=== PATIENT | male | born 1970 | race Caucasian/White ===

== ENCOUNTER 2016-04-15 13:59 | Inpatient (IN) | payer MEDICAID, OTHER ==
[2016-04-15] VITALS (10 sets, daily range): BP systolic 147–188; BP diastolic 78–104
[~2016-04-15] VITALS: Ht 162.6 cm; Wt 77.9 kg
[~2016-04-15 13:59] MED LIST: FLUC200T PO; GLYB5 PO; LISI-662 PO; METF500T4 PO
[2016-04-15 14:41] LABS: GLUCOSE,POINT OF CARE 384 MG/DL (70-110)
[2016-04-15] MEDS ORDERED: INSULIN REGULAR, HUMAN 100 UNITS/ML IVP ONE (14:45)
[2016-04-15 15:24] LABS: BASOPHILS % (AUTO) 0.7 % (0.0-2.0); EOSINOPHILS % (AUTO) 5.1 % (1.0-6.0); LYMPHOCYTES # (AUTO) 1.7 K/uL (1.0-4.8); MEAN CORPUSCULAR HEMOGLOBIN 26.5 pg (26.0-34.0); MEAN CORPUSCULAR HGB CONC 34.1 G/dL (31.0-37.0); MEAN CORPUSCULAR VOLUME 78 fL (80-100); MONOCYTES # (AUTO) 0.7 K/uL (0.1-1.0); MONOCYTES % (AUTO) 6.3 % (2.0-9.0); NEUTROPHILS # (AUTO) 7.8 K/uL (1.8-7.7); NEUTROPHILS % (AUTO) 71.9 % (40.0-70.0); PLATELET COUNT (AUTO) 501 K/uL (150-450); RED CELL DISTRIBUTION WIDTH 16.7 % (11.5-14.5); WHITE BLOOD COUNT (AUTO) 10.8 K/uL (4.5-11.0)
[2016-04-15 15:49] LABS: HEMATOCRIT 20.2 % (41-53); HEMOGLOBIN 6.9 g/dL (13.5-17.5)
[2016-04-15 15:51] LABS: ALBUMIN 1.4 g/dL (3.4-5.0); BILIRUBIN,TOTAL 0.1 mg/dL (0.1-1.0); CALCIUM, TOTAL 7.9 mg/dL (8.8-10.5); CREATININE 1.63 mg/dL (0.60-1.30); POTASSIUM 3.9 mmol/L (3.5-5.1); TOTAL PROTEIN, SERUM 6.7 g/dL (6.4-8.2)
[2016-04-15 16:17] LABS: RBC MORPHOLOGY COMMENT ABNORMAL RBC MORPH
[2016-04-15] MEDS ORDERED: 0.9% SODIUM CHLORIDE 10 ML SYRINGE IVP PRN (16:45)
[2016-04-15] MEDS ORDERED: ONDANSETRON HCL 4 MG/2 ML VIAL IVP PRN (16:45)
[2016-04-15] MEDS ORDERED: ACETAMINOPHEN 325 MG TABLET PO PRN (16:45)
[2016-04-15 16:51] LABS: GLUCOSE,POINT OF CARE 242 MG/DL (70-110)
[2016-04-15] MEDS ORDERED: VANCOMYCIN HCL 1.25 GM in DEXTROSE 5%-WATER 250 ML IV ONE (17:00)
[2016-04-15] MEDS: PIPERACILLIN SODIUM/TAZOBACTAM 2.25 GM in DEXTROSE 5%-WATER 50 ML IV SCH (17:26)
[2016-04-15] MEDS ORDERED: SODIUM CHLORIDE 0.9% 250 ML IV ONE (21:19)
[2016-04-15] MEDS ORDERED: DEXTROSE 50%-WATER 25 GM/50 ML SYRINGE IVP PRN (23:00)
[2016-04-15] MEDS ORDERED: ZOLPIDEM TARTRATE 10 MG TABLET PO PRN (23:00)
[2016-04-15] MEDS ORDERED: ALBUTEROL SULFATE 2.5 MG/0.5 ML NEB SOLUTION NEB ONE (23:17)
[2016-04-15] MEDS ORDERED: 0.9% SODIUM CHLORIDE 5 ML NEB SOLUTION NEB ONE (23:17)
[2016-04-15] MEDS ORDERED: IPRATROPIUM BROMIDE 0.5 MG/2.5 ML NEB SOLUTION NEB ONE (23:17)
[2016-04-15] MEDS: INSULIN ASPART 100 UNITS/ML SQ PRN (23:20)
[2016-04-15] MEDS: ALBUTEROL SULFATE 2.5 MG/0.5 ML NEB SOLUTION NEB PRN (23:20)
[2016-04-16] VITALS (7 sets, daily range): BP systolic 163–191; BP diastolic 94–120
[2016-04-16] MEDS: PIPERACILLIN SODIUM/TAZOBACTAM 2.25 GM in DEXTROSE 5%-WATER 50 ML IV SCH (00:30)
[2016-04-16] MEDS ORDERED: HydrALAZINE HCL 20 MG/ML VIAL IVP PRN (06:00)
[2016-04-16] MEDS: INSULIN ASPART 100 UNITS/ML SQ PRN ×3 (06:06→17:31)
[2016-04-16 06:27] LABS: GLUCOSE COMMENT 1 Received Meds; GLUCOSE,POINT OF CARE 422 MG/DL (70-110)
[2016-04-16 06:30] LABS: GLUCOSE COMMENT 1 Received Meds; GLUCOSE,POINT OF CARE 233 MG/DL (70-110)
[2016-04-16] MEDS ORDERED: 0.9% SODIUM CHLORIDE 5 ML NEB SOLUTION NEB ONE ×3 (06:42→19:54)
[2016-04-16] MEDS ORDERED: CloNIDine HCL 0.1 MG TABLET PO ONE (08:15)
[2016-04-16 08:16] LABS: BASOPHILS # (AUTO) 0.07 K/uL (0.00-0.20); BASOPHILS % (AUTO) 0.6 % (0.0-2.0); EOSINOPHILS # (AUTO) 0.74 K/uL (0.00-0.70); EOSINOPHILS % (AUTO) 5.96 % (1.0-6.0); HEMOGLOBIN 10.6 g/dL (13.5-17.5); LYMPHOCYTES # (AUTO) 1.5 K/uL (1.0-4.8); LYMPHOCYTES % (AUTO) 11.6 % (22.0-44.0); MEAN CORPUSCULAR HEMOGLOBIN 27.1 pg (26.0-34.0); MEAN CORPUSCULAR HGB CONC 34.1 G/dL (31.0-37.0); MEAN CORPUSCULAR VOLUME 79 fL (80-100); MONOCYTES # (AUTO) 0.8 K/uL (0.1-1.0); MONOCYTES % (AUTO) 6.1 % (2.0-9.0); NEUTROPHILS # (AUTO) 9.4 K/uL (1.8-7.7); NEUTROPHILS % (AUTO) 75.7 % (40.0-70.0); PLATELET COUNT (AUTO) 562 K/uL (150-450); RED BLOOD CELL COUNT(AUTO) 3.91 MIL/uL (4.50-5.90); RED CELL DISTRIBUTION WIDTH 18.5 % (11.5-14.5); WHITE BLOOD COUNT (AUTO) 12.5 K/uL (4.5-11.0)
[2016-04-16 08:25] LABS: CREATININE 1.82 mg/dL (0.60-1.30)
[2016-04-16 08:31] LABS: ALBUMIN 1.4 g/dL (3.4-5.0); BILIRUBIN,TOTAL 0.1 mg/dL (0.1-1.0); TOTAL PROTEIN, SERUM 7.3 g/dL (6.4-8.2)
[2016-04-16] MEDS: HydrALAZINE HCL 20 MG/ML VIAL IVP SCH ×2 (08:38→16:52)
[2016-04-16] MEDS ORDERED: ACETAMINOPHEN 325 MG TABLET PO PRN (08:45)
[2016-04-16] MEDS ORDERED: OxyCODONE HCL/ACETAMINOPHEN 5-325 MG TABLET PO PRN (08:45)
[2016-04-16] MEDS ORDERED: ONDANSETRON HCL 4 MG/2 ML VIAL IVP PRN (08:45)
[2016-04-16] MEDS ORDERED: DEXTROSE 50%-WATER 25 GM/50 ML SYRINGE IVP PRN (08:45)
[2016-04-16] MEDS: ALBUTEROL SULFATE 2.5 MG/0.5 ML NEB SOLUTION NEB SCH ×3 (09:03→19:54)
[2016-04-16 09:22] LABS: RBC MORPHOLOGY COMMENT ABNORMAL RBC MORPH
[2016-04-16] MEDS: FUROSEMIDE 20 MG/2 ML VIAL IVP SCH ×2 (11:29→20:33)
[2016-04-16] MEDS: LORazepam 2 MG/ML VIAL IM PRN ×2 (11:30→20:33)
[2016-04-16] MEDS: LEVOFLOXACIN 500 MG/D5% WATER 100 ML IV SCH (11:30)
[2016-04-16] MEDS: PANTOPRAZOLE SODIUM 40 MG DR TABLET PO SCH (11:30)
[2016-04-16] MEDS ORDERED: HALOPERIDOL LACTATE 5 MG/ML VIAL IM PRN (21:30)
[2016-04-16] MEDS ORDERED: LORazepam 2 MG/ML VIAL IVP PRN (21:30)
[2016-04-17] MEDS: HydrALAZINE HCL 20 MG/ML VIAL IVP SCH ×3 (00:55→15:59)
[2016-04-17 00:56] VITALS: BP 155/81
[2016-04-17] MEDS ORDERED: 0.9% SODIUM CHLORIDE 5 ML NEB SOLUTION NEB ONE ×3 (02:31→12:50)
[2016-04-17] MEDS: ALBUTEROL SULFATE 2.5 MG/0.5 ML NEB SOLUTION NEB SCH ×4 (02:37→19:53)
[2016-04-17 03:53] VITALS: BP 172/79
[2016-04-17 06:19] LABS: BASOPHILS % (AUTO) 0.3 % (0.0-2.0); EOSINOPHILS % (AUTO) 3.9 % (1.0-6.0); HEMATOCRIT 28.9 % (41-53); HEMOGLOBIN 9.8 g/dL (13.5-17.5); LYMPHOCYTES # (AUTO) 1.6 K/uL (1.0-4.8); LYMPHOCYTES % (AUTO) 12.4 % (22.0-44.0); MEAN CORPUSCULAR HGB CONC 33.8 G/dL (31.0-37.0); MEAN CORPUSCULAR VOLUME 80 fL (80-100); MONOCYTES # (AUTO) 0.9 K/uL (0.1-1.0); MONOCYTES % (AUTO) 6.5 % (2.0-9.0); NEUTROPHILS # (AUTO) 10.2 K/uL (1.8-7.7); NEUTROPHILS % (AUTO) 76.9 % (40.0-70.0); PLATELET COUNT (AUTO) 574 K/uL (150-450); RED BLOOD CELL COUNT(AUTO) 3.62 MIL/uL (4.50-5.90); RED CELL DISTRIBUTION WIDTH 18.5 % (11.5-14.5); WHITE BLOOD COUNT (AUTO) 13.3 K/uL (4.5-11.0)
[2016-04-17] MEDS: INSULIN ASPART 100 UNITS/ML SQ PRN ×4 (06:23→22:17)
[2016-04-17 06:25] LABS: ALBUMIN 1.4 g/dL (3.4-5.0); BILIRUBIN,TOTAL 0.1 mg/dL (0.1-1.0); CALCIUM, TOTAL 8.1 mg/dL (8.8-10.5); CREATININE 1.89 mg/dL (0.60-1.30); POTASSIUM 3.7 mmol/L (3.5-5.1); TOTAL PROTEIN, SERUM 6.8 g/dL (6.4-8.2)
[2016-04-17 07:26] LABS: HEMOGLOBIN A1C 10.1 % (4.5-6.2)
[2016-04-17 09:30] VITALS: BP 129/74
[2016-04-17] MEDS: LEVOFLOXACIN 500 MG/D5% WATER 100 ML IV SCH (09:40)
[2016-04-17] MEDS: PANTOPRAZOLE SODIUM 40 MG DR TABLET PO SCH (09:41)
[2016-04-17] MEDS: FUROSEMIDE 20 MG/2 ML VIAL IVP SCH ×2 (09:41→21:13)
[2016-04-17 11:45] VITALS: BP 141/80
[2016-04-17 16:00] VITALS: BP 144/84
[2016-04-17 18:12] LABS: GLUCOSE,POINT OF CARE 294 MG/DL (70-110)
[2016-04-17 18:12] LABS: GLUCOSE COMMENT 1 Received Meds; GLUCOSE,POINT OF CARE 390 MG/DL (70-110)
[2016-04-17 18:25] LABS: GLUCOSE COMMENT 1 Received Meds; GLUCOSE,POINT OF CARE 256 MG/DL (70-110)
[2016-04-17 18:31] LABS: GLUCOSE COMMENT 1 Received Meds; GLUCOSE,POINT OF CARE 253 MG/DL (70-110)
[2016-04-17] MEDS ORDERED: 0.9% SODIUM CHLORIDE 15 ML NEB SOLUTION NEB ONE (19:30)
[2016-04-17 20:33] VITALS: BP 141/81
[2016-04-17] MEDS: ZOLPIDEM TARTRATE 10 MG TABLET PO PRN (21:04)
[2016-04-18 00:07] VITALS: BP 138/58
[2016-04-18] MEDS: HydrALAZINE HCL 20 MG/ML VIAL IVP SCH ×3 (00:41→17:41)
[2016-04-18] MEDS ORDERED: 0.9% SODIUM CHLORIDE 15 ML NEB SOLUTION NEB ONE (01:40)
[2016-04-18] MEDS: ALBUTEROL SULFATE 2.5 MG/0.5 ML NEB SOLUTION NEB SCH ×4 (01:59→20:06)
[2016-04-18 05:09] VITALS: BP 142/86
[2016-04-18 06:27] LABS: BASOPHILS # (AUTO) 0.04 K/uL (0.00-0.20); BASOPHILS % (AUTO) 0.4 % (0.0-2.0); EOSINOPHILS # (AUTO) 0.44 K/uL (0.00-0.70); EOSINOPHILS % (AUTO) 4.34 % (1.0-6.0); HEMATOCRIT 28.3 % (41-53); HEMOGLOBIN 9.7 g/dL (13.5-17.5); LYMPHOCYTES # (AUTO) 1.8 K/uL (1.0-4.8); LYMPHOCYTES % (AUTO) 17.4 % (22.0-44.0); MEAN CORPUSCULAR HEMOGLOBIN 27.2 pg (26.0-34.0); MEAN CORPUSCULAR HGB CONC 34.3 G/dL (31.0-37.0); MEAN CORPUSCULAR VOLUME 79 fL (80-100); MONOCYTES # (AUTO) 0.8 K/uL (0.1-1.0); MONOCYTES % (AUTO) 7.9 % (2.0-9.0); NEUTROPHILS % (AUTO) 69.9 % (40.0-70.0); PLATELET COUNT (AUTO) 569 K/uL (150-450); RED BLOOD CELL COUNT(AUTO) 3.57 MIL/uL (4.50-5.90); WHITE BLOOD COUNT (AUTO) 10.1 K/uL (4.5-11.0)
[2016-04-18] MEDS: INSULIN ASPART 100 UNITS/ML SQ PRN ×3 (06:52→17:52)
[2016-04-18 06:54] LABS: ALANINE AMINOTRANSFERASE 16 U/L (12-78); ALBUMIN 1.4 g/dL (3.4-5.0); ANION GAP 7 mmol/L (8-16); ASPARTATE AMINOTRANSFERASE 15 U/L (15-37); CALCIUM, TOTAL 8.3 mg/dL (8.8-10.5); CARBON DIOXIDE 26 mmol/L (22-29); CHLORIDE 103 mmol/L (98-107); CREATININE 1.94 mg/dL (0.60-1.30); GLOMERULAR FILTR. RATE CALC 38 mL/min (>60); POTASSIUM 4.5 mmol/L (3.5-5.1); SODIUM SERUM 136 mmol/L (136-145); TOTAL PROTEIN, SERUM 6.9 g/dL (6.4-8.2); UREA NITROGEN, BLOOD 37 mg/dL (7-18)
[2016-04-18 07:32] LABS: BILIRUBIN,TOTAL < 0.1 mg/dL (0.1-1.0)
[2016-04-18 07:47] VITALS: BP 147/86
[2016-04-18] MEDS ORDERED: 0.9% SODIUM CHLORIDE 5 ML NEB SOLUTION NEB ONE ×3 (08:10→20:06)
[2016-04-18] MEDS: FUROSEMIDE 20 MG TABLET PO SCH (10:41)
[2016-04-18] MEDS: SPIRONOLACTONE 50 MG TABLET PO SCH (10:41)
[2016-04-18] MEDS: PANTOPRAZOLE SODIUM 40 MG DR TABLET PO SCH (10:41)
[2016-04-18] MEDS: OXYGEN THERAPY IH SCH ×2 (11:09→21:47)
[2016-04-18 11:31] LABS: RBC MORPHOLOGY COMMENT ABNORMAL RBC MORPH
[2016-04-18 12:00] VITALS: BP 150/98
[2016-04-18 12:16] LABS: ABG A-A DIFF O2 55.2 mmHg (10-20.0); ABG BASE EXCESS -2.3 mmol/L (-2.0-3.0); ABG HCO3 22.4 mmol/L (22.0-26.0); ABG OXYHEMOGLOBIN 81.6 % (94.0-100.0); ABG PCO2 41 mmHg (35-45); ABG PH 7.367 (7.35-7.450); TEMPERATURE, FAHRENHEIT, BG 98.3 FAHREN (96.0-98.6)
[2016-04-18 12:17] LABS: ALLEN TEST, BLOOD GAS Positive
[2016-04-18] MEDS ORDERED: SODIUM CHLORIDE 3% 15 ML NEB SOLUTION NEB ONE (15:18)
[2016-04-18] MEDS ORDERED: PENTETATE DTPA TC99M/MCL ISOTOPE 1 EA INJ INJ ONE (16:10)
[2016-04-18] MEDS ORDERED: MAA ALBUMIN AGGREGATED TC99M/UD<10MCL ISOTOPE 1 EA INJ INJ ONE (16:35)
[2016-04-18] MEDS: HEPARIN SODIUM,PORCINE 5,000 UNITS/ML VIAL SQ SCH (17:41)
[2016-04-18 19:39] VITALS: BP 124/76
[2016-04-18] MEDS: BUDESONIDE 0.5 MG/2 ML NEB SOLUTION NEB SCH (20:06)
[2016-04-18] MEDS: ZOLPIDEM TARTRATE 10 MG TABLET PO PRN (21:54)
[2016-04-18 22:03] VITALS: BP 136/85
[2016-04-19 00:19] VITALS: BP 144/80
[2016-04-19] MEDS ORDERED: 0.9% SODIUM CHLORIDE 5 ML NEB SOLUTION NEB ONE ×3 (02:10→19:51)
[2016-04-19] MEDS: ALBUTEROL SULFATE 2.5 MG/0.5 ML NEB SOLUTION NEB SCH ×4 (02:39→20:18)
[2016-04-19 05:15] VITALS: BP 140/96
[2016-04-19 06:03] LABS: BASOPHILS % (AUTO) 1.1 % (0.0-2.0); EOSINOPHILS % (AUTO) 5.6 % (1.0-6.0); HEMATOCRIT 28.3 % (41-53); HEMOGLOBIN 9.4 g/dL (13.5-17.5); LYMPHOCYTES # (AUTO) 1.6 K/uL (1.0-4.8); LYMPHOCYTES % (AUTO) 18.6 % (22.0-44.0); MEAN CORPUSCULAR HEMOGLOBIN 26.4 pg (26.0-34.0); MEAN CORPUSCULAR HGB CONC 33.3 G/dL (31.0-37.0); MEAN CORPUSCULAR VOLUME 79 fL (80-100); MONOCYTES % (AUTO) 11.3 % (2.0-9.0); NEUTROPHILS # (AUTO) 5.4 K/uL (1.8-7.7); NEUTROPHILS % (AUTO) 63.4 % (40.0-70.0); PLATELET COUNT (AUTO) 632 K/uL (150-450); RED BLOOD CELL COUNT(AUTO) 3.57 MIL/uL (4.50-5.90); WHITE BLOOD COUNT (AUTO) 8.5 K/uL (4.5-11.0)
[2016-04-19 06:22] LABS: ALBUMIN 1.4 g/dL (3.4-5.0); BILIRUBIN,TOTAL 0.1 mg/dL (0.1-1.0); CALCIUM, TOTAL 8.4 mg/dL (8.8-10.5); CREATININE 2.02 mg/dL (0.60-1.30); POTASSIUM 5.1 mmol/L (3.5-5.1); TOTAL PROTEIN, SERUM 6.8 g/dL (6.4-8.2)
[2016-04-19] MEDS: INSULIN ASPART 100 UNITS/ML SQ PRN (06:40)
[2016-04-19 07:10] VITALS: BP 148/78
[2016-04-19] MEDS: BUDESONIDE 0.5 MG/2 ML NEB SOLUTION NEB SCH ×2 (08:22→20:18)
[2016-04-19] MEDS: OXYGEN THERAPY IH SCH ×2 (09:45→20:18)
[2016-04-19] MEDS: HEPARIN SODIUM,PORCINE 5,000 UNITS/ML VIAL SQ SCH ×3 (09:46→16:17)
[2016-04-19] MEDS: LEVOFLOXACIN 500 MG/D5% WATER 100 ML IV SCH (09:47)
[2016-04-19] MEDS: FUROSEMIDE 20 MG TABLET PO SCH (09:47)
[2016-04-19] MEDS: SPIRONOLACTONE 50 MG TABLET PO SCH (09:47)
[2016-04-19] MEDS: PANTOPRAZOLE SODIUM 40 MG DR TABLET PO SCH (09:48)
[2016-04-19 10:35] LABS: RBC MORPHOLOGY COMMENT ABNORMAL RBC MORPH
[2016-04-19 11:01] VITALS: BP 150/72
[2016-04-19] MEDS: HydrALAZINE HCL 20 MG/ML VIAL IVP SCH ×3 (11:17→16:17)
[2016-04-19 14:56] LABS: GLUCOSE COMMENT 1 Received Meds; GLUCOSE,POINT OF CARE 251 MG/DL (70-110)
[2016-04-19 15:02] LABS: GLUCOSE COMMENT 1 Received Meds; GLUCOSE,POINT OF CARE 264 MG/DL (70-110)
[2016-04-19 15:02] LABS: GLUCOSE COMMENT 1 Received Meds; GLUCOSE,POINT OF CARE 178 MG/DL (70-110)
[2016-04-19 15:02] LABS: GLUCOSE,POINT OF CARE 185 MG/DL (70-110)
[2016-04-19 15:16] LABS: GLUCOSE,POINT OF CARE 253 MG/DL (70-110)
[2016-04-19 15:16] LABS: GLUCOSE COMMENT 1 Received Meds; GLUCOSE,POINT OF CARE 250 MG/DL (70-110)
[2016-04-19 15:21] LABS: GLUCOSE COMMENT 1 Received Meds; GLUCOSE,POINT OF CARE 259 MG/DL (70-110)
[2016-04-19 15:22] LABS: GLUCOSE COMMENT 1 Received Meds; GLUCOSE,POINT OF CARE 178 MG/DL (70-110)
[2016-04-19 15:22] LABS: GLUCOSE COMMENT 1 Received Meds; GLUCOSE,POINT OF CARE 226 MG/DL (70-110)
[2016-04-19 15:41] VITALS: BP 167/76
[2016-04-19 19:44] VITALS: BP 165/64
[2016-04-19] MEDS: ALBUMIN HUMAN 25%-25GM/100ML 100 ML IV SCH (20:00)
[2016-04-20] MEDS: ALBUMIN HUMAN 25%-25GM/100ML 100 ML IV SCH ×4 (02:00→22:17)
[2016-04-20] MEDS: ALBUTEROL SULFATE 2.5 MG/0.5 ML NEB SOLUTION NEB SCH ×4 (02:05→20:23)
[2016-04-20] MEDS ORDERED: 0.9% SODIUM CHLORIDE 5 ML NEB SOLUTION NEB ONE ×3 (02:05→20:24)
[2016-04-20 07:51] LABS: BASOPHILS # (AUTO) 0.13 K/uL (0.00-0.20); BASOPHILS % (AUTO) 1.8 % (0.0-2.0); EOSINOPHILS # (AUTO) 0.48 K/uL (0.00-0.70); EOSINOPHILS % (AUTO) 6.61 % (1.0-6.0); HEMATOCRIT 27.4 % (41-53); HEMOGLOBIN 9.5 g/dL (13.5-17.5); LYMPHOCYTES # (AUTO) 1.4 K/uL (1.0-4.8); LYMPHOCYTES % (AUTO) 19.5 % (22.0-44.0); MEAN CORPUSCULAR HEMOGLOBIN 27.1 pg (26.0-34.0); MEAN CORPUSCULAR HGB CONC 34.8 G/dL (31.0-37.0); MEAN CORPUSCULAR VOLUME 78 fL (80-100); MONOCYTES # (AUTO) 1.1 K/uL (0.1-1.0); MONOCYTES % (AUTO) 15.3 % (2.0-9.0); NEUTROPHILS # (AUTO) 4.1 K/uL (1.8-7.7); NEUTROPHILS % (AUTO) 56.8 % (40.0-70.0); PLATELET COUNT (AUTO) 492 K/uL (150-450); RED BLOOD CELL COUNT(AUTO) 3.52 MIL/uL (4.50-5.90); RED CELL DISTRIBUTION WIDTH 18.8 % (11.5-14.5); WHITE BLOOD COUNT (AUTO) 7.2 K/uL (4.5-11.0)
[2016-04-20] MEDS: OXYGEN THERAPY IH SCH ×2 (08:00→20:23)
[2016-04-20] MEDS: HydrALAZINE HCL 20 MG/ML VIAL IVP SCH ×3 (08:00→16:00)
[2016-04-20] MEDS: HEPARIN SODIUM,PORCINE 5,000 UNITS/ML VIAL SQ SCH ×3 (08:00→16:00)
[2016-04-20 08:07] LABS: ALBUMIN 1.5 g/dL (3.4-5.0); BILIRUBIN,TOTAL 0.2 mg/dL (0.1-1.0); CALCIUM, TOTAL 8.9 mg/dL (8.8-10.5); CHOL/HDL RATIO 4.8 (4.2-7.3); CREATININE 1.79 mg/dL (0.60-1.30); POTASSIUM 5.1 mmol/L (3.5-5.1)
[2016-04-20] MEDS: PANTOPRAZOLE SODIUM 40 MG DR TABLET PO SCH (09:27)
[2016-04-20] MEDS: FUROSEMIDE 20 MG TABLET PO SCH (09:27)
[2016-04-20] MEDS: BUDESONIDE 0.5 MG/2 ML NEB SOLUTION NEB SCH ×2 (09:27→20:23)
[2016-04-20] MEDS: AmLODIPine BESYLATE 10 MG TABLET PO SCH (12:26)
[2016-04-20 12:41] LABS: RBC MORPHOLOGY COMMENT ABNORMAL RBC MORPH
[2016-04-20 20:50] VITALS: BP 176/96
[2016-04-20] MEDS ORDERED: SODIUM CHLORIDE 0.9% 250 ML IV ONE ×2 (21:26→22:37)
[2016-04-20] MEDS: INSULIN ASPART 100 UNITS/ML SQ PRN (23:19)
[2016-04-21 00:27] VITALS: BP 157/99
[2016-04-21] MEDS: HEPARIN SODIUM,PORCINE 5,000 UNITS/ML VIAL SQ SCH ×3 (00:43→15:38)
[2016-04-21] MEDS: HydrALAZINE HCL 20 MG/ML VIAL IVP SCH ×3 (00:43→15:38)
[2016-04-21] MEDS: ALBUTEROL SULFATE 2.5 MG/0.5 ML NEB SOLUTION NEB SCH ×4 (02:15→19:59)
[2016-04-21] MEDS ORDERED: 0.9% SODIUM CHLORIDE 5 ML NEB SOLUTION NEB ONE ×5 (02:15→19:51)
[2016-04-21] MEDS: ALBUMIN HUMAN 25%-25GM/100ML 100 ML IV SCH ×4 (04:07→20:04)
[2016-04-21 04:12] LABS: GLUCOSE COMMENT 1 Received Meds; GLUCOSE,POINT OF CARE 197 MG/DL (70-110)
[2016-04-21 06:02] VITALS: BP 154/85
[2016-04-21 06:11] LABS: GLUCOSE COMMENT 1 Received Meds; GLUCOSE,POINT OF CARE 149 MG/DL (70-110)
[2016-04-21] MEDS: BUDESONIDE 0.5 MG/2 ML NEB SOLUTION NEB SCH ×2 (07:06→19:59)
[2016-04-21] MEDS: OXYGEN THERAPY IH SCH ×2 (07:06→20:04)
[2016-04-21 07:27] LABS: BASOPHILS % (AUTO) 1.2 % (0.0-2.0); EOSINOPHILS % (AUTO) 10.3 % (1.0-6.0); HEMATOCRIT 26.7 % (41-53); LYMPHOCYTES # (AUTO) 1.4 K/uL (1.0-4.8); LYMPHOCYTES % (AUTO) 25.4 % (22.0-44.0); MEAN CORPUSCULAR HEMOGLOBIN 26.6 pg (26.0-34.0); MEAN CORPUSCULAR HGB CONC 33.7 G/dL (31.0-37.0); MEAN CORPUSCULAR VOLUME 79 fL (80-100); MONOCYTES # (AUTO) 0.8 K/uL (0.1-1.0); MONOCYTES % (AUTO) 14.7 % (2.0-9.0); NEUTROPHILS # (AUTO) 2.7 K/uL (1.8-7.7); NEUTROPHILS % (AUTO) 48.4 % (40.0-70.0); PLATELET COUNT (AUTO) 416 K/uL (150-450); RED BLOOD CELL COUNT(AUTO) 3.38 MIL/uL (4.50-5.90); WHITE BLOOD COUNT (AUTO) 5.7 K/uL (4.5-11.0)
[2016-04-21 07:46] LABS: BILIRUBIN,TOTAL 0.2 mg/dL (0.1-1.0); CALCIUM, TOTAL 8.4 mg/dL (8.8-10.5); CREATININE 1.57 mg/dL (0.60-1.30); POTASSIUM 4.2 mmol/L (3.5-5.1); TOTAL PROTEIN, SERUM 6.9 g/dL (6.4-8.2)
[2016-04-21 08:13] VITALS: BP 151/82
[2016-04-21 08:30] LABS: PHOSPHORUS 4.7 mg/dL (2.5-4.9)
[2016-04-21] MEDS: LEVOFLOXACIN 500 MG/D5% WATER 100 ML IV SCH (08:36)
[2016-04-21] MEDS: AmLODIPine BESYLATE 10 MG TABLET PO SCH (08:37)
[2016-04-21] MEDS: FUROSEMIDE 20 MG TABLET PO SCH (08:37)
[2016-04-21] MEDS: PANTOPRAZOLE SODIUM 40 MG DR TABLET PO SCH (08:37)
[2016-04-21] MEDS: ALBUTEROL SULFATE 2.5 MG/0.5 ML NEB SOLUTION NEB PRN (11:23)
[2016-04-21] MEDS: INSULIN ASPART 100 UNITS/ML SQ PRN ×2 (11:45→17:36)
[2016-04-21 12:07] LABS: GLUCOSE COMMENT 1 Received Meds; GLUCOSE,POINT OF CARE 179 MG/DL (70-110)
[2016-04-21 12:08] VITALS: BP 143/86
[2016-04-21] MEDS: EPOETIN ALFA 10,000 UNITS/ML VIAL SQ SCH (12:17)
[2016-04-21] MEDS: FUROSEMIDE 40 MG/4 ML VIAL IVP SCH (12:17)
[2016-04-21] MEDS: LABETALOL HCL 100 MG TABLET PO SCH ×2 (12:17→20:03)
[2016-04-21] MEDS ORDERED: HALOPERIDOL LACTATE 5 MG/ML VIAL IM PRN (13:45)
[2016-04-21] MEDS ORDERED: HALOPERIDOL 5 MG TABLET PO PRN (13:45)
[2016-04-21] MEDS ORDERED: LORazepam 2 MG/ML VIAL IM PRN (13:45)
[2016-04-21 15:06] VITALS: BP 120/63
[2016-04-21] MEDS ORDERED: SODIUM CHLORIDE 0.9% 500 ML IV ONE ×2 (15:44→20:15)
[2016-04-21] MEDS ORDERED: INFLUENZA VIRUS VACCINE QVS 2016-17 (3YR+)/PF 60 MCG/0.5 ML SYRINGE IM ONE (15:45)
[2016-04-21 18:16] LABS: GLUCOSE COMMENT 1 Received Meds; GLUCOSE,POINT OF CARE 246 MG/DL (70-110)
[2016-04-21] MEDS: LORazepam 2 MG TABLET PO PRN (20:03)
[2016-04-21 20:41] VITALS: BP 125/74
[2016-04-21 21:06] LABS: GLUCOSE,POINT OF CARE 157 MG/DL (70-110)
[2016-04-22] VITALS (7 sets, daily range): BP systolic 100–133; BP diastolic 56–78
[2016-04-22] MEDS: HEPARIN SODIUM,PORCINE 5,000 UNITS/ML VIAL SQ SCH ×3 (00:13→16:15)
[2016-04-22] MEDS: INSULIN ASPART 100 UNITS/ML SQ PRN ×4 (00:14→17:46)
[2016-04-22] MEDS ORDERED: 0.9% SODIUM CHLORIDE 5 ML NEB SOLUTION NEB ONE ×3 (01:55→14:27)
[2016-04-22] MEDS: ALBUTEROL SULFATE 2.5 MG/0.5 ML NEB SOLUTION NEB SCH ×4 (02:02→20:26)
[2016-04-22] MEDS: ALBUMIN HUMAN 25%-25GM/100ML 100 ML IV SCH ×4 (04:20→21:05)
[2016-04-22 06:31] LABS: GLUCOSE COMMENT 1 Received Meds; GLUCOSE,POINT OF CARE 159 MG/DL (70-110)
[2016-04-22 06:56] LABS: CALCIUM, TOTAL 8.2 mg/dL (8.8-10.5); CREATININE 1.8 mg/dL (0.60-1.30); MAGNESIUM 1.9 mg/dL (1.80-2.40); PHOSPHORUS 5.6 mg/dL (2.5-4.9); POTASSIUM 4.4 mmol/L (3.5-5.1)
[2016-04-22] MEDS: BUDESONIDE 0.5 MG/2 ML NEB SOLUTION NEB SCH ×2 (07:37→20:25)
[2016-04-22] MEDS: OXYGEN THERAPY IH SCH ×2 (07:41→20:00)
[2016-04-22] MEDS: HydrALAZINE HCL 20 MG/ML VIAL IVP SCH ×3 (08:25→16:00)
[2016-04-22] MEDS: LABETALOL HCL 100 MG TABLET PO SCH ×2 (08:26→21:00)
[2016-04-22] MEDS: FUROSEMIDE 40 MG/4 ML VIAL IVP SCH (08:26)
[2016-04-22] MEDS: AmLODIPine BESYLATE 10 MG TABLET PO SCH (08:26)
[2016-04-22] MEDS: PANTOPRAZOLE SODIUM 40 MG DR TABLET PO SCH (08:26)
[2016-04-22 11:56] LABS: GLUCOSE,POINT OF CARE 198 MG/DL (70-110)
[2016-04-22 16:54] LABS: COCCIDIOIDES IMMITIS AB IGG 0.785 Abs; COCCIDIOIDES IMMITIS AB IGM <0.150 Abs
[2016-04-22 17:56] LABS: GLUCOSE COMMENT 1 Received Meds; GLUCOSE,POINT OF CARE 175 MG/DL (70-110)
[2016-04-22 18:16] LABS: GLUCOSE,POINT OF CARE 215 MG/DL (70-110)
[2016-04-22 23:41] LABS: GLUCOSE COMMENT 1 Received Meds; GLUCOSE,POINT OF CARE 170 MG/DL (70-110)
[2016-04-23] MEDS: HydrALAZINE HCL 20 MG/ML VIAL IVP SCH
[2016-04-23] MEDS: ALBUMIN HUMAN 25%-25GM/100ML 100 ML IV SCH ×4 (01:11→23:07)
[2016-04-23] MEDS: HEPARIN SODIUM,PORCINE 5,000 UNITS/ML VIAL SQ SCH ×4 (01:11→23:07)
[2016-04-23 03:10] VITALS: BP 123/65
[2016-04-23 05:51] LABS: GLUCOSE,POINT OF CARE 212 MG/DL (70-110)
[2016-04-23] MEDS: INSULIN ASPART 100 UNITS/ML SQ PRN ×3 (05:54→17:52)
[2016-04-23 07:27] VITALS: BP 112/63
[2016-04-23] MEDS ORDERED: 0.9% SODIUM CHLORIDE 5 ML NEB SOLUTION NEB ONE ×3 (08:00→20:58)
[2016-04-23] MEDS: ALBUTEROL SULFATE 2.5 MG/0.5 ML NEB SOLUTION NEB SCH ×3 (08:14→21:34)
[2016-04-23] MEDS: BUDESONIDE 0.5 MG/2 ML NEB SOLUTION NEB SCH ×2 (08:14→21:34)
[2016-04-23 08:32] LABS: APPEARANCE,URINE CLOUDY (CLEAR); GLUCOSE, URINE (UA) 250 mg/dL (NEGATIVE); KETONES,URINE NEGATIVE (NEGATIVE); LEUKOCYTE ESTERASE ,URINE NEGATIVE (NEGATIVE); OCCULT BLOOD,URINE NEGATIVE (NEGATIVE); PROTEIN,URINE SEE CONFIRM (NEGATIVE)
[2016-04-23] MEDS ORDERED: AmLODIPine BESYLATE 5 MG TABLET PO SCH (09:00)
[2016-04-23] MEDS: PANTOPRAZOLE SODIUM 40 MG DR TABLET PO SCH (09:38)
[2016-04-23] MEDS: FUROSEMIDE 40 MG/4 ML VIAL IVP SCH (09:38)
[2016-04-23] MEDS: LABETALOL HCL 100 MG TABLET PO SCH ×2 (09:38→22:08)
[2016-04-23] MEDS: EPOETIN ALFA 10,000 UNITS/ML VIAL SQ SCH (09:39)
[2016-04-23] MEDS ORDERED: CloNIDine HCL 0.1 MG TABLET PO PRN (10:45)
[2016-04-23 10:46] LABS: ADD UA MICROSCOPIC YES
[2016-04-23 10:47] LABS: SULFOSALICYLIC ACID,URINE 4+ (Negative)
[2016-04-23 10:48] LABS: RBC,URINE None Seen /HPF (0-2); WBC,URINE 0-2 /HPF (0-5)
[2016-04-23 10:49] LABS: RENAL EPITHELIAL CELLS,URINE Rare /LPF (None Seen)
[2016-04-23 10:51] LABS: FINE GRANULAR CASTS,URINE 0-2 /LPF (None Seen)
[2016-04-23 10:52] LABS: COARSE GRANULAR CASTS,URINE 0-2 /LPF (None Seen)
[2016-04-23] MEDS: LEVOFLOXACIN 500 MG/D5% WATER 100 ML IV SCH (10:56)
[2016-04-23 11:26] VITALS: BP 141/78
[2016-04-23 12:46] LABS: GLUCOSE COMMENT 1 Received Meds; GLUCOSE,POINT OF CARE 147 MG/DL (70-110)
[2016-04-23 13:26] LABS: APPEARANCE,URINE CLOUDY (CLEAR); GLUCOSE, URINE (UA) 100 mg/dL (NEGATIVE); KETONES,URINE NEGATIVE (NEGATIVE); LEUKOCYTE ESTERASE ,URINE NEGATIVE (NEGATIVE); OCCULT BLOOD,URINE NEGATIVE (NEGATIVE); PROTEIN,URINE SEE CONFIRM (NEGATIVE)
[2016-04-23 13:38] LABS: ADD UA MICROSCOPIC YES
[2016-04-23 13:39] LABS: RBC,URINE None Seen /HPF (0-2)
[2016-04-23 13:40] LABS: WBC,URINE 0-2 /HPF (0-5)
[2016-04-23 13:41] LABS: COARSE GRANULAR CASTS,URINE 0-2 /LPF (None Seen)
[2016-04-23 13:43] LABS: FINE GRANULAR CASTS,URINE 0-2 /LPF (None Seen)
[2016-04-23 15:41] VITALS: BP 120/60
[2016-04-23] MEDS: HydrALAZINE HCL 25 MG TABLET PO SCH ×2 (15:41→23:07)
[2016-04-23] MEDS: OXYGEN THERAPY IH SCH ×2 (15:45→21:35)
[2016-04-23 18:02] LABS: GLUCOSE,POINT OF CARE 117 MG/DL (70-110)
[2016-04-23 20:00] VITALS: BP 112/64
[2016-04-23 23:05] VITALS: BP 124/68
[2016-04-23] MEDS: LORazepam 2 MG TABLET PO PRN (23:07)
[2016-04-23 23:20] LABS: GLUCOSE COMMENT 1 Received Meds; GLUCOSE,POINT OF CARE 155 MG/DL (70-110)
[2016-04-24] MEDS ORDERED: 0.9% SODIUM CHLORIDE 5 ML NEB SOLUTION NEB ONE ×4 (01:58→21:28)
[2016-04-24] MEDS: ALBUTEROL SULFATE 2.5 MG/0.5 ML NEB SOLUTION NEB SCH ×4 (02:08→21:34)
[2016-04-24] MEDS ORDERED: SODIUM CHLORIDE 0.9% 250 ML IV ONE (03:04)
[2016-04-24] MEDS: ALBUMIN HUMAN 25%-25GM/100ML 100 ML IV SCH ×4 (03:05→20:14)
[2016-04-24 05:15] VITALS: BP 128/61
[2016-04-24 05:31] LABS: GLUCOSE,POINT OF CARE 119 MG/DL (70-110)
[2016-04-24 06:42] LABS: BASOPHILS % (AUTO) 0.9 % (0.0-2.0); EOSINOPHILS % (AUTO) 4.1 % (1.0-6.0); HEMOGLOBIN 7.9 g/dL (13.5-17.5); LYMPHOCYTES # (AUTO) 1.1 K/uL (1.0-4.8); LYMPHOCYTES % (AUTO) 18.7 % (22.0-44.0); MEAN CORPUSCULAR HEMOGLOBIN 26.6 pg (26.0-34.0); MEAN CORPUSCULAR HGB CONC 33.1 G/dL (31.0-37.0); MEAN CORPUSCULAR VOLUME 80 fL (80-100); MONOCYTES # (AUTO) 0.8 K/uL (0.1-1.0); MONOCYTES % (AUTO) 12.9 % (2.0-9.0); NEUTROPHILS # (AUTO) 3.9 K/uL (1.8-7.7); NEUTROPHILS % (AUTO) 63.4 % (40.0-70.0); PLATELET COUNT (AUTO) 379 K/uL (150-450); RED BLOOD CELL COUNT(AUTO) 2.99 MIL/uL (4.50-5.90); WHITE BLOOD COUNT (AUTO) 6.2 K/uL (4.5-11.0)
[2016-04-24 07:17] LABS: CALCIUM, TOTAL 8.5 mg/dL (8.8-10.5); CREATININE 2.47 mg/dL (0.60-1.30); POTASSIUM 4.9 mmol/L (3.5-5.1)
[2016-04-24 07:51] VITALS: BP 136/66
[2016-04-24 08:07] LABS: PHOSPHORUS 5.4 mg/dL (2.5-4.9)
[2016-04-24] MEDS: BUDESONIDE 0.5 MG/2 ML NEB SOLUTION NEB SCH ×2 (08:08→21:33)
[2016-04-24] MEDS: FUROSEMIDE 40 MG/4 ML VIAL IVP SCH (09:07)
[2016-04-24] MEDS: HEPARIN SODIUM,PORCINE 5,000 UNITS/ML VIAL SQ SCH ×3 (09:07→23:49)
[2016-04-24] MEDS: PANTOPRAZOLE SODIUM 40 MG DR TABLET PO SCH (09:07)
[2016-04-24] MEDS: HydrALAZINE HCL 25 MG TABLET PO SCH ×4 (09:07→23:52)
[2016-04-24] MEDS: AmLODIPine BESYLATE 10 MG TABLET PO SCH (09:07)
[2016-04-24] MEDS: LABETALOL HCL 100 MG TABLET PO SCH ×2 (09:07→20:13)
[2016-04-24] MEDS: OXYGEN THERAPY IH SCH ×2 (09:08→21:34)
[2016-04-24 09:10] LABS: RBC MORPHOLOGY COMMENT ABNORMAL RBC MORPH
[2016-04-24] MEDS: INSULIN ASPART 100 UNITS/ML SQ PRN ×2 (12:10→20:13)
[2016-04-24 15:20] VITALS: BP 132/69
[2016-04-24 19:49] VITALS: BP 118/78
[2016-04-24 22:01] LABS: GLUCOSE COMMENT 1 Received Meds; GLUCOSE,POINT OF CARE 148 MG/DL (70-110)
[2016-04-24 22:01] LABS: GLUCOSE,POINT OF CARE 137 MG/DL (70-110)
[2016-04-24 22:01] LABS: GLUCOSE,POINT OF CARE 162 MG/DL (70-110)
[2016-04-24 23:30] VITALS: BP 108/68
[2016-04-25] MEDS: ALBUMIN HUMAN 25%-25GM/100ML 100 ML IV SCH ×4 (02:23→21:02)
[2016-04-25] MEDS ORDERED: 0.9% SODIUM CHLORIDE 5 ML NEB SOLUTION NEB ONE ×3 (03:25→20:06)
[2016-04-25] MEDS: ALBUTEROL SULFATE 2.5 MG/0.5 ML NEB SOLUTION NEB SCH ×4 (03:29→20:04)
[2016-04-25 03:56] VITALS: BP 128/72
[2016-04-25 06:38] LABS: BASOPHILS % (AUTO) 1.2 % (0.0-2.0); HEMATOCRIT 23.2 % (41-53); HEMOGLOBIN 7.7 g/dL (13.5-17.5); LYMPHOCYTES # (AUTO) 1.2 K/uL (1.0-4.8); LYMPHOCYTES % (AUTO) 21.5 % (22.0-44.0); MEAN CORPUSCULAR HEMOGLOBIN 26.4 pg (26.0-34.0); MEAN CORPUSCULAR HGB CONC 33.1 G/dL (31.0-37.0); MEAN CORPUSCULAR VOLUME 80 fL (80-100); MONOCYTES # (AUTO) 0.8 K/uL (0.1-1.0); MONOCYTES % (AUTO) 14.6 % (2.0-9.0); NEUTROPHILS # (AUTO) 3.4 K/uL (1.8-7.7); NEUTROPHILS % (AUTO) 59.7 % (40.0-70.0); PLATELET COUNT (AUTO) 363 K/uL (150-450); RED BLOOD CELL COUNT(AUTO) 2.91 MIL/uL (4.50-5.90); RED CELL DISTRIBUTION WIDTH 19.4 % (11.5-14.5); WHITE BLOOD COUNT (AUTO) 5.7 K/uL (4.5-11.0)
[2016-04-25 06:47] LABS: CALCIUM, TOTAL 8.4 mg/dL (8.8-10.5); CREATININE 2.5 mg/dL (0.60-1.30); POTASSIUM 5.3 mmol/L (3.5-5.1)
[2016-04-25 06:51] LABS: GLUCOSE,POINT OF CARE 134 MG/DL (70-110)
[2016-04-25] MEDS: BUDESONIDE 0.5 MG/2 ML NEB SOLUTION NEB SCH ×2 (07:10→20:17)
[2016-04-25 07:28] VITALS: BP 134/75
[2016-04-25 09:05] LABS: RBC MORPHOLOGY COMMENT ABNORMAL RBC MORPH
[2016-04-25] MEDS: AmLODIPine BESYLATE 10 MG TABLET PO SCH (09:22)
[2016-04-25] MEDS: PANTOPRAZOLE SODIUM 40 MG DR TABLET PO SCH (09:23)
[2016-04-25] MEDS: HEPARIN SODIUM,PORCINE 5,000 UNITS/ML VIAL SQ SCH ×2 (09:23→17:08)
[2016-04-25] MEDS: FUROSEMIDE 40 MG TABLET PO SCH (09:23)
[2016-04-25] MEDS: HydrALAZINE HCL 25 MG TABLET PO SCH ×2 (09:23→17:08)
[2016-04-25] MEDS: LABETALOL HCL 100 MG TABLET PO SCH ×2 (09:23→21:01)
[2016-04-25] MEDS: LEVOFLOXACIN 500 MG/D5% WATER 100 ML IV SCH (09:34)
[2016-04-25 11:26] VITALS: BP 137/79
[2016-04-25 11:26] LABS: GLUCOSE,POINT OF CARE 174 MG/DL (70-110)
[2016-04-25] MEDS: INSULIN ASPART 100 UNITS/ML SQ PRN ×3 (13:01→21:10)
[2016-04-25] MEDS ORDERED: FUROSEMIDE 40 MG/4 ML VIAL IVP ONE (15:15)
[2016-04-25 15:42] VITALS: BP 120/67
[2016-04-25 17:51] LABS: GLUCOSE,POINT OF CARE 156 MG/DL (70-110)
[2016-04-25 19:40] VITALS: BP 114/78
[2016-04-25] MEDS: OXYGEN THERAPY IH SCH (20:04)
[2016-04-25 21:16] LABS: GLUCOSE COMMENT 1 Received Meds; GLUCOSE,POINT OF CARE 192 MG/DL (70-110)
[2016-04-25 23:36] VITALS: BP 110/79
[2016-04-26] MEDS: HEPARIN SODIUM,PORCINE 5,000 UNITS/ML VIAL SQ SCH ×4 (00:13→23:25)
[2016-04-26] MEDS: HydrALAZINE HCL 25 MG TABLET PO SCH ×4 (00:13→23:25)
[2016-04-26] MEDS ORDERED: SODIUM CHLORIDE 0.9% 500 ML IV ONE (00:17)
[2016-04-26] MEDS: ALBUTEROL SULFATE 2.5 MG/0.5 ML NEB SOLUTION NEB SCH ×3 (01:52→19:15)
[2016-04-26] MEDS ORDERED: 0.9% SODIUM CHLORIDE 5 ML NEB SOLUTION NEB ONE (01:53)
[2016-04-26] MEDS: ALBUMIN HUMAN 25%-25GM/100ML 100 ML IV SCH ×4 (02:08→21:10)
[2016-04-26 04:52] VITALS: BP 122/65
[2016-04-26 05:11] LABS: GLUCOSE COMMENT 1 Received Meds; GLUCOSE,POINT OF CARE 166 MG/DL (70-110)
[2016-04-26] MEDS: INSULIN ASPART 100 UNITS/ML SQ PRN ×4 (05:58→21:13)
[2016-04-26 06:31] LABS: HEPATITIS C AB SCREEN <0.1 s/co ratio (0.0-0.9)
[2016-04-26 07:24] LABS: BASOPHILS # (AUTO) 0.02 K/uL (0.00-0.20); BASOPHILS % (AUTO) 0.3 % (0.0-2.0); EOSINOPHILS # (AUTO) 0.27 K/uL (0.00-0.70); EOSINOPHILS % (AUTO) 3.91 % (1.0-6.0); HEMATOCRIT 23.4 % (41-53); HEMOGLOBIN 7.8 g/dL (13.5-17.5); LYMPHOCYTES # (AUTO) 1.2 K/uL (1.0-4.8); LYMPHOCYTES % (AUTO) 17.8 % (22.0-44.0); MEAN CORPUSCULAR HEMOGLOBIN 26.5 pg (26.0-34.0); MEAN CORPUSCULAR HGB CONC 33.2 G/dL (31.0-37.0); MEAN CORPUSCULAR VOLUME 80 fL (80-100); MONOCYTES % (AUTO) 14.6 % (2.0-9.0); NEUTROPHILS # (AUTO) 4.4 K/uL (1.8-7.7); NEUTROPHILS % (AUTO) 63.3 % (40.0-70.0); PLATELET COUNT (AUTO) 351 K/uL (150-450); RED BLOOD CELL COUNT(AUTO) 2.94 MIL/uL (4.50-5.90); RED CELL DISTRIBUTION WIDTH 19.6 % (11.5-14.5); WHITE BLOOD COUNT (AUTO) 6.9 K/uL (4.5-11.0)
[2016-04-26 07:54] LABS: CREATININE 2.54 mg/dL (0.60-1.30); MAGNESIUM 2.2 mg/dL (1.80-2.40); PHOSPHORUS 5.1 mg/dL (2.5-4.9); POTASSIUM 5.1 mmol/L (3.5-5.1)
[2016-04-26 07:58] VITALS: BP 129/72
[2016-04-26] MEDS: OXYGEN THERAPY IH SCH ×2 (08:00→20:00)
[2016-04-26 08:16] LABS: CALCIUM, TOTAL 8.5 mg/dL (8.8-10.5)
[2016-04-26] MEDS: AmLODIPine BESYLATE 10 MG TABLET PO SCH (08:53)
[2016-04-26] MEDS: LABETALOL HCL 100 MG TABLET PO SCH ×2 (08:53→21:09)
[2016-04-26] MEDS: FUROSEMIDE 40 MG TABLET PO SCH (08:54)
[2016-04-26] MEDS: PANTOPRAZOLE SODIUM 40 MG DR TABLET PO SCH (08:54)
[2016-04-26] MEDS: EPOETIN ALFA 10,000 UNITS/ML VIAL SQ SCH (08:54)
[2016-04-26] MEDS: BUDESONIDE 0.5 MG/2 ML NEB SOLUTION NEB SCH ×2 (09:26→19:15)
[2016-04-26 10:55] LABS: RBC MORPHOLOGY COMMENT ABNORMAL RBC MORPH
[2016-04-26] MEDS ORDERED: FUROSEMIDE 40 MG/4 ML VIAL IVP ONE (11:30)
[2016-04-26 11:47] LABS: GLUCOSE,POINT OF CARE 223 MG/DL (70-110)
[2016-04-26 11:49] VITALS: BP 118/69
[2016-04-26 16:30] VITALS: BP 130/76
[2016-04-26 17:47] LABS: GLUCOSE,POINT OF CARE 215 MG/DL (70-110)
[2016-04-26 19:25] VITALS: BP 124/72
[2016-04-26 21:11] LABS: GLUCOSE COMMENT 1 Received Meds; GLUCOSE,POINT OF CARE 193 MG/DL (70-110)
[2016-04-26 23:40] VITALS: BP 118/78
[2016-04-27] MEDS: ALBUMIN HUMAN 25%-25GM/100ML 100 ML IV SCH ×3 (02:00→20:32)
[2016-04-27] MEDS ORDERED: 0.9% SODIUM CHLORIDE 5 ML NEB SOLUTION NEB ONE ×3 (03:50→15:30)
[2016-04-27] MEDS: ALBUTEROL SULFATE 2.5 MG/0.5 ML NEB SOLUTION NEB SCH ×4 (03:53→20:02)
[2016-04-27 04:43] VITALS: BP 122/84
[2016-04-27 05:46] LABS: GLUCOSE,POINT OF CARE 201 MG/DL (70-110)
[2016-04-27] MEDS: INSULIN ASPART 100 UNITS/ML SQ PRN ×3 (06:16→20:33)
[2016-04-27 06:36] LABS: CALCIUM, TOTAL 8.5 mg/dL (8.8-10.5); CREATININE 2.58 mg/dL (0.60-1.30); MAGNESIUM 2.1 mg/dL (1.80-2.40); PHOSPHORUS 5.3 mg/dL (2.5-4.9); POTASSIUM 5.3 mmol/L (3.5-5.1)
[2016-04-27] MEDS: BUDESONIDE 0.5 MG/2 ML NEB SOLUTION NEB SCH ×2 (07:37→20:02)
[2016-04-27 07:38] VITALS: BP 116/76
[2016-04-27] MEDS: HydrALAZINE HCL 25 MG TABLET PO SCH ×3 (08:00→23:43)
[2016-04-27] MEDS: HEPARIN SODIUM,PORCINE 5,000 UNITS/ML VIAL SQ SCH ×3 (08:00→23:43)
[2016-04-27] MEDS: LABETALOL HCL 100 MG TABLET PO SCH ×2 (09:00→20:32)
[2016-04-27] MEDS: PANTOPRAZOLE SODIUM 40 MG DR TABLET PO SCH (09:00)
[2016-04-27] MEDS: AmLODIPine BESYLATE 10 MG TABLET PO SCH (09:00)
[2016-04-27 10:56] LABS: IGG (IMMUNOFIXATION) 1112 mg/dL (700-1600)
[2016-04-27 10:59] LABS: INR 1.1 (0.9-1.1); PROTHROMBIN TIME 11.7 SEC (9.4-11.6)
[2016-04-27 11:02] VITALS: BP 139/74
[2016-04-27 11:25] LABS: GLUCOSE,POINT OF CARE 202 MG/DL (70-110)
[2016-04-27] MEDS: ALBUTEROL SULFATE 2.5 MG/0.5 ML NEB SOLUTION NEB PRN (11:38)
[2016-04-27] MEDS ORDERED: GELATIN SPONGE,ABSORBABLE 12-7 MM TP ONE (13:32)
[2016-04-27] MEDS ORDERED: LIDOCAINE HCL/PF 1% 30 ML VIAL ONE (13:32)
[2016-04-27] MEDS ORDERED: MIDAZOLAM HCL 2 MG/2 ML VIAL ONE (13:32)
[2016-04-27] MEDS ORDERED: FentaNYL CITRATE-PF 100 MCG/2 ML VIAL ONE (13:32)
[2016-04-27] MEDS ORDERED: MIDAZOLAM HCL 2 MG/2 ML VIAL IVP ONE (14:27)
[2016-04-27] MEDS ORDERED: FentaNYL CITRATE-PF 100 MCG/2 ML VIAL IVP ONE (14:27)
[2016-04-27 15:14] VITALS: BP 143/77
[2016-04-27] MEDS: LEVOFLOXACIN 500 MG/D5% WATER 100 ML IV SCH (17:13)
[2016-04-27] MEDS: MORPHINE SULFATE 2 MG/ML SYRINGE IVP PRN ×3 (17:14→23:53)
[2016-04-27 18:16] LABS: GLUCOSE,POINT OF CARE 242 MG/DL (70-110)
[2016-04-27] MEDS: FUROSEMIDE 40 MG/4 ML VIAL IVP SCH (18:20)
[2016-04-27 20:25] VITALS: BP 127/64
[2016-04-27 22:31] LABS: GLUCOSE COMMENT 1 Received Meds; GLUCOSE,POINT OF CARE 238 MG/DL (70-110)
[2016-04-27] MEDS: OXYGEN THERAPY IH SCH (23:44)
[2016-04-28 00:27] VITALS: BP 132/72
[2016-04-28] MEDS: ALBUMIN HUMAN 25%-25GM/100ML 100 ML IV SCH ×4 (02:34→20:32)
[2016-04-28 03:06] LABS: ALBUMIN/GLOBULIN RAITO (PEP) 1.5 (0.7-1.7); ALPHA-1 GLOBULINS(PEP) 0.1 g/dL (0.0-0.4); ALPHA-2 GLOBULINS (PEP) 0.7 g/dL (0.4-1.0); BETA (PEP) 0.7 g/dL (0.7-1.3); GAMMA GLOBULINS (PEP) 1.1 g/dL (0.4-1.8); GLOBULIN TOTAL (PEP) 2.6 g/dL (2.2-3.9); M-SPIKE (PEP) Not Observed g/dL (Not Observed); TOTAL PROTEIN 6.6 g/dL (6.0-8.5)
[2016-04-28] MEDS ORDERED: 0.9% SODIUM CHLORIDE 5 ML NEB SOLUTION NEB ONE ×4 (04:24→19:37)
[2016-04-28] MEDS: ALBUTEROL SULFATE 2.5 MG/0.5 ML NEB SOLUTION NEB SCH ×4 (04:27→19:42)
[2016-04-28 04:39] VITALS: BP 128/69
[2016-04-28] MEDS: MORPHINE SULFATE 2 MG/ML SYRINGE IVP PRN ×3 (05:18→16:02)
[2016-04-28 05:40] LABS: COMPLEMENT C3 76 mg/dL (82-167); COMPLEMENT C4 33 mg/dL (14-44)
[2016-04-28 06:02] LABS: GLUCOSE,POINT OF CARE 182 MG/DL (70-110)
[2016-04-28 07:36] VITALS: BP_SYST 133; BP_SYST 139; BP_DIAS 59; BP_DIAS 70
[2016-04-28] MEDS: BUDESONIDE 0.5 MG/2 ML NEB SOLUTION NEB SCH ×2 (07:53→19:42)
[2016-04-28] MEDS: HEPARIN SODIUM,PORCINE 5,000 UNITS/ML VIAL SQ SCH ×2 (08:00→15:53)
[2016-04-28] MEDS: EPOETIN ALFA 10,000 UNITS/ML VIAL SQ SCH (08:19)
[2016-04-28] MEDS: FUROSEMIDE 40 MG/4 ML VIAL IVP SCH (08:19)
[2016-04-28 08:23] LABS: CALCIUM, TOTAL 8.8 mg/dL (8.8-10.5); CREATININE 2.32 mg/dL (0.60-1.30); MAGNESIUM 2.3 mg/dL (1.80-2.40); PHOSPHORUS 5.7 mg/dL (2.5-4.9); TOTAL PROTEIN, SERUM 7.3 g/dL (6.4-8.2)
[2016-04-28 08:32] LABS: POTASSIUM 6.4 mmol/L (3.5-5.1)
[2016-04-28 09:37] LABS: CALCIUM, TOTAL 8.6 mg/dL (8.8-10.5); CREATININE 2.35 mg/dL (0.60-1.30); POTASSIUM 5.9 mmol/L (3.5-5.1)
[2016-04-28] MEDS ORDERED: SODIUM POLYSTYRENE SULFONATE 15 GM/60 ML SUSPENSION BOTTLE PO ONE (11:00)
[2016-04-28 12:28] VITALS: BP 143/71
[2016-04-28] MEDS: PANTOPRAZOLE SODIUM 40 MG DR TABLET PO SCH (12:28)
[2016-04-28] MEDS: HydrALAZINE HCL 25 MG TABLET PO SCH ×2 (12:28→15:53)
[2016-04-28] MEDS: LABETALOL HCL 100 MG TABLET PO SCH ×2 (12:28→20:32)
[2016-04-28] MEDS: AmLODIPine BESYLATE 10 MG TABLET PO SCH (12:28)
[2016-04-28] MEDS: INSULIN ASPART 100 UNITS/ML SQ PRN ×3 (12:30→21:17)
[2016-04-28 13:06] LABS: GLUCOSE COMMENT 1 Received Meds; GLUCOSE,POINT OF CARE 171 MG/DL (70-110)
[2016-04-28 15:56] VITALS: BP 135/66
[2016-04-28 18:30] LABS: GLUCOSE COMMENT 1 Received Meds; GLUCOSE,POINT OF CARE 199 MG/DL (70-110)
[2016-04-28 19:32] LABS: APPEARANCE,UNSPUN,BODY FLUID CLOUDY (CLEAR); COLOR,BODY FLUID YELLOW (LT YELLOW); OTHER CELLS,BODY FLUID MACROPHAGES
[2016-04-28 19:34] LABS: PH, BODY FLUID 7
[2016-04-28 20:25] VITALS: BP 140/73
[2016-04-28] MEDS ORDERED: SODIUM CHLORIDE 0.9% 500 ML IV ONE (21:47)
[2016-04-28 21:57] LABS: GLUCOSE COMMENT 1 Received Meds; GLUCOSE,POINT OF CARE 191 MG/DL (70-110)
[2016-04-29] VITALS (7 sets, daily range): BP systolic 131–154; BP diastolic 65–80
[2016-04-29] MEDS: HydrALAZINE HCL 25 MG TABLET PO SCH ×4 (01:20→23:10)
[2016-04-29] MEDS ORDERED: 0.9% SODIUM CHLORIDE 5 ML NEB SOLUTION NEB ONE ×4 (02:53→20:24)
[2016-04-29] MEDS: ALBUTEROL SULFATE 2.5 MG/0.5 ML NEB SOLUTION NEB SCH ×4 (02:56→20:48)
[2016-04-29 04:16] LABS: ALPHA-1 URINE (ELP) 0.1 %; ALPHA-2 URINE(ELP) 1.5 %; BETA URINE(ELP) 5.1 %; GAMMA URINE(ELP) 11.2 %; TOTAL PROTEIN URINE 558.9 mg/dL (Not Estab.)
[2016-04-29 04:16] LABS: ALBUMIN URINE (ELP24) 77.8 %; ALPHA-1 URINE (ELP24) 0.2 %; ALPHA-2 URINE(ELP24) 2.1 %; BETA URINE(ELP24) 6.5 %; GAMMA URINE(ELP24) 13.4 %; TOTAL PROTEIN URINE 904.6 mg/dL (Not Estab.)
[2016-04-29] MEDS: ALBUMIN HUMAN 25%-25GM/100ML 100 ML IV SCH ×4 (05:37→19:53)
[2016-04-29] MEDS: INSULIN ASPART 100 UNITS/ML SQ PRN ×4 (05:49→21:02)
[2016-04-29 06:16] LABS: GLUCOSE COMMENT 1 Received Meds; GLUCOSE,POINT OF CARE 187 MG/DL (70-110)
[2016-04-29] MEDS: BUDESONIDE 0.5 MG/2 ML NEB SOLUTION NEB SCH ×2 (08:49→20:48)
[2016-04-29] MEDS: AmLODIPine BESYLATE 10 MG TABLET PO SCH (08:53)
[2016-04-29] MEDS: PANTOPRAZOLE SODIUM 40 MG DR TABLET PO SCH (08:53)
[2016-04-29] MEDS: FUROSEMIDE 40 MG/4 ML VIAL IVP SCH (08:53)
[2016-04-29] MEDS: LABETALOL HCL 100 MG TABLET PO SCH ×2 (08:54→19:53)
[2016-04-29] MEDS: LEVOFLOXACIN 500 MG/D5% WATER 100 ML IV SCH (09:44)
[2016-04-29] MEDS: MORPHINE SULFATE 2 MG/ML SYRINGE IVP PRN ×5 (11:33→23:10)
[2016-04-29 12:06] LABS: GLUCOSE,POINT OF CARE 262 MG/DL (70-110)
[2016-04-29 15:08] LABS: TOTAL PROTEIN,BODY FLUID,REF 3.1 g/dL
[2016-04-29] MEDS ORDERED: 0.9% SODIUM CHLORIDE 10 ML SYRINGE IVP PRN (15:15)
[2016-04-29 17:36] LABS: GLUCOSE COMMENT 1 Received Meds; GLUCOSE,POINT OF CARE 204 MG/DL (70-110)
[2016-04-29 18:33] LABS: CALCIUM, TOTAL 8.6 mg/dL (8.8-10.5); CREATININE 2.16 mg/dL (0.60-1.30)
[2016-04-29 22:11] LABS: GLUCOSE COMMENT 1 Received Meds; GLUCOSE,POINT OF CARE 199 MG/DL (70-110)
[2016-04-30] MEDS: MORPHINE SULFATE 2 MG/ML SYRINGE IVP PRN ×6 (02:02→23:49)
[2016-04-30] MEDS: ALBUMIN HUMAN 25%-25GM/100ML 100 ML IV SCH ×2 (02:02→08:18)
[2016-04-30] MEDS ORDERED: 0.9% SODIUM CHLORIDE 5 ML NEB SOLUTION NEB ONE ×4 (02:46→19:51)
[2016-04-30] MEDS: ALBUTEROL SULFATE 2.5 MG/0.5 ML NEB SOLUTION NEB SCH ×4 (02:48→20:15)
[2016-04-30 04:59] VITALS: BP 127/63
[2016-04-30] MEDS: INSULIN ASPART 100 UNITS/ML SQ PRN ×4 (06:22→21:37)
[2016-04-30] MEDS: BUDESONIDE 0.5 MG/2 ML NEB SOLUTION NEB SCH ×2 (07:15→20:27)
[2016-04-30 07:46] VITALS: BP 137/58
[2016-04-30 08:16] LABS: GLUCOSE COMMENT 1 Received Meds; GLUCOSE,POINT OF CARE 176 MG/DL (70-110)
[2016-04-30] MEDS: AmLODIPine BESYLATE 10 MG TABLET PO SCH (08:18)
[2016-04-30] MEDS: PANTOPRAZOLE SODIUM 40 MG DR TABLET PO SCH (08:18)
[2016-04-30] MEDS: FUROSEMIDE 40 MG/4 ML VIAL IVP SCH (08:18)
[2016-04-30] MEDS: LABETALOL HCL 100 MG TABLET PO SCH ×2 (08:19→21:30)
[2016-04-30] MEDS: HydrALAZINE HCL 25 MG TABLET PO SCH ×3 (08:19→23:48)
[2016-04-30] MEDS: EPOETIN ALFA 10,000 UNITS/ML VIAL SQ SCH (09:16)
[2016-04-30] MEDS ORDERED: SODIUM CHLORIDE 0.9% 250 ML IV ONE (11:17)
[2016-04-30 11:25] VITALS: BP 138/76
[2016-04-30 11:50] LABS: BASOPHILS % (AUTO) 0.9 % (0.0-2.0); EOSINOPHILS % (AUTO) 6.5 % (1.0-6.0); HEMATOCRIT 26.2 % (41-53); HEMOGLOBIN 8.5 g/dL (13.5-17.5); LYMPHOCYTES # (AUTO) 0.7 K/uL (1.0-4.8); LYMPHOCYTES % (AUTO) 8.7 % (22.0-44.0); MEAN CORPUSCULAR HEMOGLOBIN 26.2 pg (26.0-34.0); MEAN CORPUSCULAR HGB CONC 32.7 G/dL (31.0-37.0); MEAN CORPUSCULAR VOLUME 80 fL (80-100); MONOCYTES % (AUTO) 12.2 % (2.0-9.0); NEUTROPHILS # (AUTO) 5.6 K/uL (1.8-7.7); NEUTROPHILS % (AUTO) 71.7 % (40.0-70.0); PLATELET COUNT (AUTO) 386 K/uL (150-450); RED BLOOD CELL COUNT(AUTO) 3.26 MIL/uL (4.50-5.90); RED CELL DISTRIBUTION WIDTH 19.5 % (11.5-14.5); WHITE BLOOD COUNT (AUTO) 7.9 K/uL (4.5-11.0)
[2016-04-30 11:51] LABS: GLUCOSE,POINT OF CARE 193 MG/DL (70-110)
[2016-04-30 12:06] LABS: ALBUMIN 4.1 g/dL (3.4-5.0); BILIRUBIN,TOTAL 0.5 mg/dL (0.1-1.0); CALCIUM, TOTAL 8.9 mg/dL (8.8-10.5); CREATININE 1.98 mg/dL (0.60-1.30); POTASSIUM 5.1 mmol/L (3.5-5.1); TOTAL PROTEIN, SERUM 7.6 g/dL (6.4-8.2)
[2016-04-30 12:39] LABS: RBC MORPHOLOGY COMMENT ABNORMAL RBC MORPH
[2016-04-30 15:39] VITALS: BP 125/84
[2016-04-30 17:36] LABS: GLUCOSE,POINT OF CARE 210 MG/DL (70-110)
[2016-04-30 19:13] VITALS: BP 132/78
[2016-04-30 23:48] VITALS: BP 143/81
[2016-05-01] MEDS ORDERED: 0.9% SODIUM CHLORIDE 5 ML NEB SOLUTION NEB ONE ×3 (02:13→19:15)
[2016-05-01] MEDS: ALBUTEROL SULFATE 2.5 MG/0.5 ML NEB SOLUTION NEB SCH ×4 (02:13→19:25)
[2016-05-01 04:17] VITALS: BP 128/78
[2016-05-01] MEDS: MORPHINE SULFATE 2 MG/ML SYRINGE IVP PRN ×3 (05:32→23:49)
[2016-05-01] MEDS: INSULIN ASPART 100 UNITS/ML SQ PRN (06:30)
[2016-05-01 07:46] VITALS: BP 132/84
[2016-05-01] MEDS: FUROSEMIDE 40 MG/4 ML VIAL IVP SCH (08:05)
[2016-05-01] MEDS: LEVOFLOXACIN 500 MG/D5% WATER 100 ML IV SCH (08:05)
[2016-05-01] MEDS: PANTOPRAZOLE SODIUM 40 MG DR TABLET PO SCH (08:06)
[2016-05-01] MEDS: HydrALAZINE HCL 25 MG TABLET PO SCH ×3 (08:09→23:49)
[2016-05-01] MEDS: LABETALOL HCL 100 MG TABLET PO SCH ×2 (08:09→20:47)
[2016-05-01] MEDS: BUDESONIDE 0.5 MG/2 ML NEB SOLUTION NEB SCH ×2 (08:25→19:25)
[2016-05-01] MEDS: AmLODIPine BESYLATE 10 MG TABLET PO SCH (10:25)
[2016-05-01 11:38] VITALS: BP 119/55
[2016-05-01 11:46] LABS: GLUCOSE,POINT OF CARE 190 MG/DL (70-110)
[2016-05-01 11:46] LABS: GLUCOSE,POINT OF CARE 229 MG/DL (70-110)
[2016-05-01 15:40] VITALS: BP 136/76
[2016-05-01] MEDS ORDERED: IPRATROPIUM BROMIDE 0.5 MG/2.5 ML NEB SOLUTION NEB ONE (19:17)
[2016-05-01 20:17] VITALS: BP 123/68
[2016-05-02] VITALS (8 sets, daily range): BP systolic 133–154; BP diastolic 61–79
[2016-05-02 02:32] LABS: GLUCOSE,POINT OF CARE 165 MG/DL (70-110)
[2016-05-02] MEDS ORDERED: 0.9% SODIUM CHLORIDE 5 ML NEB SOLUTION NEB ONE ×3 (03:25→19:25)
[2016-05-02] MEDS: ALBUTEROL SULFATE 2.5 MG/0.5 ML NEB SOLUTION NEB SCH ×4 (03:27→19:51)
[2016-05-02] MEDS: INSULIN ASPART 100 UNITS/ML SQ PRN ×3 (05:50→20:21)
[2016-05-02 06:11] LABS: GLUCOSE,POINT OF CARE 163 MG/DL (70-110)
[2016-05-02] MEDS: BUDESONIDE 0.5 MG/2 ML NEB SOLUTION NEB SCH ×2 (07:08→19:51)
[2016-05-02 07:14] LABS: BASOPHILS # (AUTO) 0.04 K/uL (0.00-0.20); BASOPHILS % (AUTO) 0.8 % (0.0-2.0); EOSINOPHILS # (AUTO) 0.25 K/uL (0.00-0.70); EOSINOPHILS % (AUTO) 4.44 % (1.0-6.0); HEMATOCRIT 25.3 % (41-53); HEMOGLOBIN 8.4 g/dL (13.5-17.5); LYMPHOCYTES # (AUTO) 0.8 K/uL (1.0-4.8); LYMPHOCYTES % (AUTO) 13.8 % (22.0-44.0); MEAN CORPUSCULAR HEMOGLOBIN 26.5 pg (26.0-34.0); MEAN CORPUSCULAR VOLUME 80 fL (80-100); MONOCYTES # (AUTO) 0.9 K/uL (0.1-1.0); MONOCYTES % (AUTO) 15.8 % (2.0-9.0); NEUTROPHILS # (AUTO) 3.6 K/uL (1.8-7.7); NEUTROPHILS % (AUTO) 65.2 % (40.0-70.0); PLATELET COUNT (AUTO) 346 K/uL (150-450); RED BLOOD CELL COUNT(AUTO) 3.15 MIL/uL (4.50-5.90); RED CELL DISTRIBUTION WIDTH 19.5 % (11.5-14.5); WHITE BLOOD COUNT (AUTO) 5.5 K/uL (4.5-11.0)
[2016-05-02 07:50] LABS: ALBUMIN 4.2 g/dL (3.4-5.0); BILIRUBIN,TOTAL 0.3 mg/dL (0.1-1.0); CREATININE 2.51 mg/dL (0.60-1.30); TOTAL PROTEIN, SERUM 7.8 g/dL (6.4-8.2)
[2016-05-02] MEDS ORDERED: SODIUM POLYSTYRENE SULFONATE 15 GM/60 ML SUSPENSION BOTTLE PO ONE ×2 (08:30)
[2016-05-02] MEDS ORDERED: DEXTROSE 50%-WATER 25 GM/50 ML SYRINGE IVP ONE (08:45)
[2016-05-02] MEDS: HydrALAZINE HCL 25 MG TABLET PO SCH ×3 (08:56→23:31)
[2016-05-02] MEDS: LABETALOL HCL 100 MG TABLET PO SCH ×2 (08:56→20:20)
[2016-05-02] MEDS: FUROSEMIDE 40 MG/4 ML VIAL IVP SCH (08:56)
[2016-05-02] MEDS: AmLODIPine BESYLATE 10 MG TABLET PO SCH (08:57)
[2016-05-02] MEDS: PANTOPRAZOLE SODIUM 40 MG DR TABLET PO SCH (08:57)
[2016-05-02] MEDS: MORPHINE SULFATE 2 MG/ML SYRINGE IVP PRN (09:17)
[2016-05-02 09:54] LABS: ERYTHROCYTE SEDIMENTATION RATE 43 MM/HR (0-15)
[2016-05-02] MEDS ORDERED: INSULIN REGULAR, HUMAN 100 UNITS/ML SQ ONE (11:15)
[2016-05-02 12:22] LABS: RBC MORPHOLOGY COMMENT ABNORMAL RBC MORPH
[2016-05-02 13:06] LABS: CALCIUM, TOTAL 8.9 mg/dL (8.8-10.5); CREATININE 2.64 mg/dL (0.60-1.30); POTASSIUM 5.6 mmol/L (3.5-5.1)
[2016-05-02 15:44] LABS: APPEARANCE,URINE CLOUDY (CLEAR); GLUCOSE, URINE (UA) NEGATIVE (NEGATIVE); KETONES,URINE NEGATIVE (NEGATIVE); LEUKOCYTE ESTERASE ,URINE NEGATIVE (NEGATIVE); OCCULT BLOOD,URINE NEGATIVE (NEGATIVE); PROTEIN,URINE SEE CONFIRM (NEGATIVE)
[2016-05-02 16:37] LABS: ADD UA MICROSCOPIC YES
[2016-05-02 16:53] LABS: SULFOSALICYLIC ACID,URINE 3+ (Negative)
[2016-05-02 16:56] LABS: HYALINE CASTS, URINE 0-2 /LPF (None Seen); RBC,URINE 0-2 /HPF (0-2); SQUAMOUS EPITHELIAL CELL,UR Rare /LPF (None Seen); WBC,URINE 0-2 /HPF (0-5)
[2016-05-02 17:16] LABS: GLUCOSE,POINT OF CARE 176 MG/DL (70-110)
[2016-05-02 18:21] LABS: GLUCOSE COMMENT 1 Received Meds; GLUCOSE,POINT OF CARE 154 MG/DL (70-110)
[2016-05-02 21:30] LABS: GLUCOSE COMMENT 1 Received Meds; GLUCOSE,POINT OF CARE 162 MG/DL (70-110)
[2016-05-03] MEDS ORDERED: 0.9% SODIUM CHLORIDE 5 ML NEB SOLUTION NEB ONE ×3 (02:02→19:15)
[2016-05-03] MEDS: ALBUTEROL SULFATE 2.5 MG/0.5 ML NEB SOLUTION NEB SCH ×4 (02:07→19:25)
[2016-05-03 04:30] VITALS: BP 148/80
[2016-05-03] MEDS: INSULIN ASPART 100 UNITS/ML SQ PRN ×3 (05:21→19:57)
[2016-05-03 05:40] LABS: GLUCOSE COMMENT 1 Received Meds; GLUCOSE,POINT OF CARE 160 MG/DL (70-110)
[2016-05-03 07:06] LABS: CALCIUM, TOTAL 8.6 mg/dL (8.8-10.5); CREATININE 2.58 mg/dL (0.60-1.30); MAGNESIUM 2.2 mg/dL (1.80-2.40); PHOSPHORUS 5.9 mg/dL (2.5-4.9); POTASSIUM 5.2 mmol/L (3.5-5.1)
[2016-05-03] MEDS ORDERED: SODIUM POLYSTYRENE SULFONATE 15 GM/60 ML SUSPENSION BOTTLE PO ONE (08:00)
[2016-05-03 08:06] VITALS: BP 129/64
[2016-05-03] MEDS: BUDESONIDE 0.5 MG/2 ML NEB SOLUTION NEB SCH ×2 (08:37→19:24)
[2016-05-03] MEDS: EPOETIN ALFA 10,000 UNITS/ML VIAL SQ SCH (08:48)
[2016-05-03] MEDS: AmLODIPine BESYLATE 10 MG TABLET PO SCH (08:48)
[2016-05-03] MEDS: LABETALOL HCL 100 MG TABLET PO SCH (08:48)
[2016-05-03] MEDS: CALCIUM ACETATE 667 MG CAPSULE PO SCH ×3 (08:48→17:04)
[2016-05-03] MEDS: HydrALAZINE HCL 25 MG TABLET PO SCH ×3 (08:48→23:40)
[2016-05-03] MEDS: FUROSEMIDE 40 MG/4 ML VIAL IVP SCH ×2 (08:48→19:56)
[2016-05-03] MEDS: PANTOPRAZOLE SODIUM 40 MG DR TABLET PO SCH (08:48)
[2016-05-03 11:05] VITALS: BP 150/74
[2016-05-03] MEDS ORDERED: SODIUM CHLORIDE 0.9% 250 ML IV ONE (11:42)
[2016-05-03] MEDS: LEVOFLOXACIN 500 MG/D5% WATER 100 ML IV SCH (11:45)
[2016-05-03] MEDS: MORPHINE SULFATE 2 MG/ML SYRINGE IVP PRN ×2 (11:45→18:47)
[2016-05-03 11:57] LABS: GLUCOSE,POINT OF CARE 249 MG/DL (70-110)
[2016-05-03 16:10] VITALS: BP 130/66
[2016-05-03 17:59] LABS: ABG A-A DIFF O2 121.7 mmHg (10-20.0); ABG BASE EXCESS 0.2 mmol/L (-2.0-3.0); ABG HCO3 24.4 mmol/L (22.0-26.0); ABG OXYHEMOGLOBIN 92.9 % (94.0-100.0); ABG PCO2 52 mmHg (35-45); ABG PH 7.324 (7.35-7.450); TEMPERATURE, FAHRENHEIT, BG 98.2 FAHREN (96.0-98.6)
[2016-05-03 18:02] LABS: ALLEN TEST, BLOOD GAS Positive
[2016-05-03 18:36] LABS: GLUCOSE,POINT OF CARE 221 MG/DL (70-110)
[2016-05-03 19:47] VITALS: BP 129/71
[2016-05-03] MEDS: LABETALOL HCL 200 MG TABLET PO SCH (19:57)
[2016-05-03 21:31] LABS: GLUCOSE COMMENT 1 Received Meds; GLUCOSE,POINT OF CARE 187 MG/DL (70-110)
[2016-05-03 23:37] VITALS: BP 126/64
[2016-05-04] MEDS: ALBUTEROL SULFATE 2.5 MG/0.5 ML NEB SOLUTION NEB SCH ×4 (01:46→19:26)
[2016-05-04 04:00] VITALS: BP 147/68
[2016-05-04] MEDS: INSULIN ASPART 100 UNITS/ML SQ PRN ×4 (05:34→21:00)
[2016-05-04 06:15] LABS: BASOPHILS # (AUTO) 0.07 K/uL (0.00-0.20); BASOPHILS % (AUTO) 1.3 % (0.0-2.0); EOSINOPHILS # (AUTO) 0.27 K/uL (0.00-0.70); EOSINOPHILS % (AUTO) 5.38 % (1.0-6.0); HEMATOCRIT 23.3 % (41-53); HEMOGLOBIN 7.7 g/dL (13.5-17.5); LYMPHOCYTES # (AUTO) 0.9 K/uL (1.0-4.8); LYMPHOCYTES % (AUTO) 18.5 % (22.0-44.0); MEAN CORPUSCULAR HEMOGLOBIN 26.3 pg (26.0-34.0); MEAN CORPUSCULAR VOLUME 80 fL (80-100); MONOCYTES # (AUTO) 0.9 K/uL (0.1-1.0); MONOCYTES % (AUTO) 17.8 % (2.0-9.0); NEUTROPHILS # (AUTO) 2.9 K/uL (1.8-7.7); NEUTROPHILS % (AUTO) 57.1 % (40.0-70.0); PLATELET COUNT (AUTO) 324 K/uL (150-450); RED BLOOD CELL COUNT(AUTO) 2.93 MIL/uL (4.50-5.90)
[2016-05-04 06:53] LABS: ALBUMIN 3.7 g/dL (3.4-5.0); BILIRUBIN,TOTAL 0.3 mg/dL (0.1-1.0); CALCIUM, TOTAL 8.5 mg/dL (8.8-10.5); CREATININE 2.51 mg/dL (0.60-1.30); TOTAL PROTEIN, SERUM 7.1 g/dL (6.4-8.2)
[2016-05-04] MEDS: MORPHINE SULFATE 2 MG/ML SYRINGE IVP PRN ×2 (06:58→18:43)
[2016-05-04 07:44] VITALS: BP 103/62
[2016-05-04] MEDS: HydrALAZINE HCL 25 MG TABLET PO SCH ×3 (08:00→23:45)
[2016-05-04] MEDS: BUDESONIDE 0.5 MG/2 ML NEB SOLUTION NEB SCH ×2 (08:41→22:34)
[2016-05-04 08:52] LABS: RBC MORPHOLOGY COMMENT ABNORMAL RBC MORPH
[2016-05-04 11:27] LABS: GLUCOSE COMMENT 1 Received Meds; GLUCOSE,POINT OF CARE 171 MG/DL (70-110)
[2016-05-04] MEDS: CALCIUM ACETATE 667 MG CAPSULE PO SCH ×3 (11:30→18:00)
[2016-05-04] MEDS: PANTOPRAZOLE SODIUM 40 MG DR TABLET PO SCH (11:30)
[2016-05-04] MEDS: FUROSEMIDE 40 MG/4 ML VIAL IVP SCH ×2 (11:35→21:01)
[2016-05-04] MEDS: AmLODIPine BESYLATE 5 MG TABLET PO SCH (11:35)
[2016-05-04] MEDS: LABETALOL HCL 200 MG TABLET PO SCH ×2 (11:35→21:01)
[2016-05-04 12:11] LABS: GLUCOSE COMMENT 1 Received Meds; GLUCOSE,POINT OF CARE 217 MG/DL (70-110)
[2016-05-04 12:21] VITALS: BP 130/74
[2016-05-04] MEDS ORDERED: 0.9% SODIUM CHLORIDE 5 ML NEB SOLUTION NEB ONE ×3 (14:19→19:14)
[2016-05-04 15:38] LABS: ANA,IFA (TITER & PATTERN) Negative
[2016-05-04 16:01] VITALS: BP 139/75
[2016-05-04 17:42] LABS: GLUCOSE COMMENT 1 Received Meds; GLUCOSE,POINT OF CARE 227 MG/DL (70-110)
[2016-05-04] MEDS ORDERED: METOLAZONE 5 MG TABLET PO ONE ×2 (17:45→20:30)
[2016-05-04 19:47] VITALS: BP 146/79
[2016-05-04 22:05] LABS: GLUCOSE COMMENT 1 Received Meds; GLUCOSE,POINT OF CARE 177 MG/DL (70-110)
[2016-05-04 22:58] VITALS: BP 146/79
[2016-05-05] MEDS: MORPHINE SULFATE 2 MG/ML SYRINGE IVP PRN ×5 (01:59→20:10)
[2016-05-05] MEDS ORDERED: 0.9% SODIUM CHLORIDE 5 ML NEB SOLUTION NEB ONE ×4 (02:46→20:22)
[2016-05-05] MEDS: ALBUTEROL SULFATE 2.5 MG/0.5 ML NEB SOLUTION NEB SCH ×4 (02:55→20:22)
[2016-05-05 04:42] VITALS: BP 132/75
[2016-05-05 05:22] LABS: GLUCOSE COMMENT 1 Received Meds; GLUCOSE,POINT OF CARE 199 MG/DL (70-110)
[2016-05-05] MEDS: INSULIN ASPART 100 UNITS/ML SQ PRN ×3 (05:56→17:27)
[2016-05-05 07:26] VITALS: BP 134/72
[2016-05-05] MEDS: BUDESONIDE 0.5 MG/2 ML NEB SOLUTION NEB SCH ×2 (07:43→20:36)
[2016-05-05] MEDS: AmLODIPine BESYLATE 5 MG TABLET PO SCH (08:21)
[2016-05-05] MEDS: CALCIUM ACETATE 667 MG CAPSULE PO SCH ×3 (08:21→17:27)
[2016-05-05] MEDS: HydrALAZINE HCL 25 MG TABLET PO SCH ×2 (08:21→16:00)
[2016-05-05] MEDS: PANTOPRAZOLE SODIUM 40 MG DR TABLET PO SCH (08:21)
[2016-05-05] MEDS: EPOETIN ALFA 10,000 UNITS/ML VIAL SQ SCH (08:21)
[2016-05-05] MEDS: LABETALOL HCL 200 MG TABLET PO SCH ×2 (08:21→19:51)
[2016-05-05] MEDS: FUROSEMIDE 40 MG/4 ML VIAL IVP SCH ×2 (08:21→19:51)
[2016-05-05] MEDS: LEVOFLOXACIN 500 MG/D5% WATER 100 ML IV SCH (08:29)
[2016-05-05 11:27] VITALS: BP 143/73
[2016-05-05 11:32] LABS: BASOPHILS % (AUTO) 0.6 % (0.0-2.0); EOSINOPHILS % (AUTO) 8.5 % (1.0-6.0); HEMATOCRIT 24.4 % (41-53); LYMPHOCYTES # (AUTO) 1.2 K/uL (1.0-4.8); LYMPHOCYTES % (AUTO) 23.2 % (22.0-44.0); MEAN CORPUSCULAR HGB CONC 32.6 G/dL (31.0-37.0); MEAN CORPUSCULAR VOLUME 80 fL (80-100); MONOCYTES # (AUTO) 0.9 K/uL (0.1-1.0); MONOCYTES % (AUTO) 16.5 % (2.0-9.0); NEUTROPHILS # (AUTO) 2.7 K/uL (1.8-7.7); NEUTROPHILS % (AUTO) 51.2 % (40.0-70.0); PLATELET COUNT (AUTO) 364 K/uL (150-450); RED BLOOD CELL COUNT(AUTO) 3.05 MIL/uL (4.50-5.90); WHITE BLOOD COUNT (AUTO) 5.2 K/uL (4.5-11.0)
[2016-05-05 11:32] LABS: GLUCOSE COMMENT 1 Received Meds; GLUCOSE,POINT OF CARE 229 MG/DL (70-110)
[2016-05-05 11:47] LABS: CALCIUM, TOTAL 8.7 mg/dL (8.8-10.5); CREATININE 2.44 mg/dL (0.60-1.30); MAGNESIUM 2.2 mg/dL (1.80-2.40); PHOSPHORUS 5.4 mg/dL (2.5-4.9); POTASSIUM 4.6 mmol/L (3.5-5.1)
[2016-05-05 15:28] VITALS: BP 138/72
[2016-05-05 17:46] LABS: GLUCOSE COMMENT 1 Received Meds; GLUCOSE,POINT OF CARE 258 MG/DL (70-110)
[2016-05-05 19:22] VITALS: BP 132/71
[2016-05-05] MEDS ORDERED: METOLAZONE 5 MG TABLET PO ONE (20:30)
[2016-05-05 23:00] VITALS: BP 135/76
[2016-05-06] MEDS: HydrALAZINE HCL 25 MG TABLET PO SCH ×3 (00:22→17:45)
[2016-05-06] MEDS: MORPHINE SULFATE 2 MG/ML SYRINGE IVP PRN ×2 (01:56→22:50)
[2016-05-06] MEDS ORDERED: 0.9% SODIUM CHLORIDE 5 ML NEB SOLUTION NEB ONE ×3 (02:37→14:37)
[2016-05-06] MEDS: ALBUTEROL SULFATE 2.5 MG/0.5 ML NEB SOLUTION NEB SCH ×4 (02:58→20:19)
[2016-05-06 03:00] VITALS: BP 135/75
[2016-05-06 03:27] LABS: GLUCOSE COMMENT 1 Received Meds; GLUCOSE,POINT OF CARE 141 MG/DL (70-110)
[2016-05-06] MEDS: INSULIN ASPART 100 UNITS/ML SQ PRN ×4 (06:23→21:21)
[2016-05-06 07:01] LABS: CREATININE 2.33 mg/dL (0.60-1.30); MAGNESIUM 2.2 mg/dL (1.80-2.40); PHOSPHORUS 5.2 mg/dL (2.5-4.9); POTASSIUM 4.3 mmol/L (3.5-5.1)
[2016-05-06 07:15] VITALS: BP 131/67
[2016-05-06] MEDS: BUDESONIDE 0.5 MG/2 ML NEB SOLUTION NEB SCH ×2 (07:47→20:19)
[2016-05-06] MEDS: CALCIUM ACETATE 667 MG CAPSULE PO SCH ×3 (10:23→17:57)
[2016-05-06] MEDS: LABETALOL HCL 200 MG TABLET PO SCH ×2 (10:24→21:20)
[2016-05-06] MEDS: PANTOPRAZOLE SODIUM 40 MG DR TABLET PO SCH (10:36)
[2016-05-06] MEDS: FUROSEMIDE 40 MG/4 ML VIAL IVP SCH ×2 (10:36→21:20)
[2016-05-06 11:16] LABS: GLUCOSE COMMENT 1 Received Meds; GLUCOSE,POINT OF CARE 180 MG/DL (70-110)
[2016-05-06] MEDS: AmLODIPine BESYLATE 5 MG TABLET PO SCH (11:17)
[2016-05-06 11:31] VITALS: BP 140/74
[2016-05-06 13:17] LABS: GLUCOSE COMMENT 1 Received Meds; GLUCOSE,POINT OF CARE 259 MG/DL (70-110)
[2016-05-06 15:00] VITALS: BP 134/70
[2016-05-06 18:23] LABS: GLUCOSE COMMENT 1 Received Meds; GLUCOSE,POINT OF CARE 250 MG/DL (70-110)
[2016-05-06 19:22] VITALS: BP 132/72
[2016-05-06 21:37] LABS: GLUCOSE,POINT OF CARE 242 MG/DL (70-110)
[2016-05-06 23:18] VITALS: BP 128/69
[2016-05-07] MEDS ORDERED: 0.9% SODIUM CHLORIDE 5 ML NEB SOLUTION NEB ONE ×3 (02:41→14:48)
[2016-05-07] MEDS: ALBUTEROL SULFATE 2.5 MG/0.5 ML NEB SOLUTION NEB SCH ×4 (02:47→20:51)
[2016-05-07] MEDS: MORPHINE SULFATE 2 MG/ML SYRINGE IVP PRN (03:27)
[2016-05-07 04:18] VITALS: BP 138/76
[2016-05-07] MEDS: INSULIN ASPART 100 UNITS/ML SQ PRN ×2 (06:48→21:58)
[2016-05-07 06:57] LABS: GLUCOSE,POINT OF CARE 177 MG/DL (70-110)
[2016-05-07 07:20] VITALS: BP 125/69
[2016-05-07 07:53] LABS: CALCIUM, TOTAL 9.1 mg/dL (8.8-10.5); CREATININE 2.26 mg/dL (0.60-1.30); MAGNESIUM 2.2 mg/dL (1.80-2.40); PHOSPHORUS 5.2 mg/dL (2.5-4.9); POTASSIUM 4.6 mmol/L (3.5-5.1)
[2016-05-07] MEDS: HydrALAZINE HCL 25 MG TABLET PO SCH ×3 (08:21→16:00)
[2016-05-07] MEDS: CALCIUM ACETATE 667 MG CAPSULE PO SCH ×3 (08:22→18:00)
[2016-05-07] MEDS: AmLODIPine BESYLATE 5 MG TABLET PO SCH (08:22)
[2016-05-07] MEDS: LABETALOL HCL 200 MG TABLET PO SCH ×2 (08:22→21:51)
[2016-05-07] MEDS: FUROSEMIDE 40 MG/4 ML VIAL IVP SCH ×2 (08:24→21:50)
[2016-05-07] MEDS: PANTOPRAZOLE SODIUM 40 MG DR TABLET PO SCH (08:24)
[2016-05-07] MEDS: EPOETIN ALFA 10,000 UNITS/ML VIAL SQ SCH (08:25)
[2016-05-07] MEDS: LEVOFLOXACIN 500 MG/D5% WATER 100 ML IV SCH (08:26)
[2016-05-07] MEDS: BUDESONIDE 0.5 MG/2 ML NEB SOLUTION NEB SCH ×2 (09:08→20:51)
[2016-05-07 11:20] VITALS: BP 129/67
[2016-05-07 15:10] VITALS: BP 132/65
[2016-05-07 16:16] LABS: GLUCOSE,POINT OF CARE 162 MG/DL (70-110)
[2016-05-07] MEDS: METOCLOPRAMIDE HCL 5 MG TABLET PO SCH ×3 (16:41→21:51)
[2016-05-07 21:06] VITALS: BP 134/70
[2016-05-07 21:11] LABS: GLUCOSE COMMENT 1 Received Meds; GLUCOSE,POINT OF CARE 225 MG/DL (70-110)
[2016-05-07 23:52] LABS: GLUCOSE,POINT OF CARE 204 MG/DL (70-110)
[2016-05-08] MEDS: HydrALAZINE HCL 25 MG TABLET PO SCH ×3 (00:01→16:56)
[2016-05-08 00:18] VITALS: BP 142/74
[2016-05-08] MEDS ORDERED: 0.9% SODIUM CHLORIDE 5 ML NEB SOLUTION NEB ONE ×4 (03:13→21:21)
[2016-05-08] MEDS: ALBUTEROL SULFATE 2.5 MG/0.5 ML NEB SOLUTION NEB SCH ×4 (03:16→21:21)
[2016-05-08 03:37] VITALS: BP 137/76
[2016-05-08 05:21] LABS: GLUCOSE,POINT OF CARE 216 MG/DL (70-110)
[2016-05-08] MEDS: METOCLOPRAMIDE HCL 5 MG TABLET PO SCH ×4 (06:31→21:56)
[2016-05-08] MEDS: INSULIN ASPART 100 UNITS/ML SQ PRN ×4 (06:33→21:44)
[2016-05-08 07:30] VITALS: BP 128/78
[2016-05-08] MEDS: CALCIUM ACETATE 667 MG CAPSULE PO SCH ×3 (08:12→16:56)
[2016-05-08] MEDS: AmLODIPine BESYLATE 5 MG TABLET PO SCH (08:12)
[2016-05-08] MEDS: FUROSEMIDE 40 MG/4 ML VIAL IVP SCH ×2 (08:13→20:32)
[2016-05-08] MEDS: PANTOPRAZOLE SODIUM 40 MG DR TABLET PO SCH (08:13)
[2016-05-08] MEDS: LABETALOL HCL 200 MG TABLET PO SCH ×2 (08:13→20:32)
[2016-05-08] MEDS: BUDESONIDE 0.5 MG/2 ML NEB SOLUTION NEB SCH ×2 (08:22→21:21)
[2016-05-08 08:55] LABS: CREATININE 2.33 mg/dL (0.60-1.30); MAGNESIUM 2.1 mg/dL (1.80-2.40); PHOSPHORUS 5.2 mg/dL (2.5-4.9); POTASSIUM 4.6 mmol/L (3.5-5.1)
[2016-05-08 11:24] VITALS: BP 130/76
[2016-05-08 11:52] LABS: GLUCOSE,POINT OF CARE 202 MG/DL (70-110)
[2016-05-08 16:20] VITALS: BP 145/74
[2016-05-08 17:12] LABS: GLUCOSE,POINT OF CARE 285 MG/DL (70-110)
[2016-05-08 19:53] VITALS: BP 138/76
[2016-05-08] MEDS: MORPHINE SULFATE 2 MG/ML SYRINGE IVP PRN (20:33)
[2016-05-08 23:42] LABS: GLUCOSE COMMENT 1 Received Meds; GLUCOSE,POINT OF CARE 238 MG/DL (70-110)
[2016-05-09] VITALS (7 sets, daily range): BP systolic 131–150; BP diastolic 65–84
[2016-05-09] MEDS: HydrALAZINE HCL 25 MG TABLET PO SCH ×4 (00:30→23:55)
[2016-05-09] MEDS ORDERED: 0.9% SODIUM CHLORIDE 5 ML NEB SOLUTION NEB ONE ×3 (01:53→19:30)
[2016-05-09] MEDS: ALBUTEROL SULFATE 2.5 MG/0.5 ML NEB SOLUTION NEB SCH ×4 (02:00→19:45)
[2016-05-09] MEDS: INSULIN ASPART 100 UNITS/ML SQ PRN ×4 (06:24→21:36)
[2016-05-09] MEDS: METOCLOPRAMIDE HCL 5 MG TABLET PO SCH ×4 (06:29→21:35)
[2016-05-09 06:38] LABS: CALCIUM, TOTAL 8.8 mg/dL (8.8-10.5); CREATININE 2.35 mg/dL (0.60-1.30); MAGNESIUM 1.9 mg/dL (1.80-2.40); PHOSPHORUS 4.1 mg/dL (2.5-4.9); POTASSIUM 4.5 mmol/L (3.5-5.1)
[2016-05-09 07:01] LABS: GLUCOSE COMMENT 1 Received Meds; GLUCOSE,POINT OF CARE 240 MG/DL (70-110)
[2016-05-09] MEDS: BUDESONIDE 0.5 MG/2 ML NEB SOLUTION NEB SCH ×2 (07:24→19:45)
[2016-05-09] MEDS: PANTOPRAZOLE SODIUM 40 MG DR TABLET PO SCH (08:04)
[2016-05-09] MEDS: FUROSEMIDE 40 MG/4 ML VIAL IVP SCH (08:05)
[2016-05-09] MEDS: AmLODIPine BESYLATE 5 MG TABLET PO SCH (08:05)
[2016-05-09] MEDS: LABETALOL HCL 200 MG TABLET PO SCH ×2 (08:05→21:35)
[2016-05-09] MEDS: CALCIUM ACETATE 667 MG CAPSULE PO SCH ×3 (08:05→16:11)
[2016-05-09] MEDS: LEVOFLOXACIN 500 MG/D5% WATER 100 ML IV SCH (08:07)
[2016-05-09] MEDS ORDERED: LACTULOSE 20 GM/30 ML SOLUTION UDCUP PO ONE (09:00)
[2016-05-09 11:47] LABS: GLUCOSE COMMENT 1 Received Meds; GLUCOSE,POINT OF CARE 287 MG/DL (70-110)
[2016-05-09 17:22] LABS: GLUCOSE COMMENT 1 Received Meds; GLUCOSE,POINT OF CARE 247 MG/DL (70-110)
[2016-05-09] MEDS: DOCUSATE SODIUM 100 MG CAPSULE PO PRN (17:52)
[2016-05-09] MEDS ORDERED: ALBU8HFA IH (18:50)
[2016-05-09] MEDS ORDERED: AMLO-511 PO (18:50)
[2016-05-09] MEDS ORDERED: PHOSLOC PO (18:51)
[2016-05-09] MEDS ORDERED: FURO40 PO (18:51)
[2016-05-09] MEDS ORDERED: HYDR25 PO (18:53)
[2016-05-09] MEDS ORDERED: LABE200T PO (18:53)
[2016-05-09] MEDS ORDERED: ACET-784 PO (18:55)
[2016-05-09] MEDS ORDERED: LEVO500 PO (18:55)
[2016-05-09] MEDS ORDERED: PANT20TA12 PO (18:55)
[2016-05-09] MEDS ORDERED: INSU100C6 SQ (18:56)
[2016-05-09] MEDS ORDERED: LORA2TAB2 PO (18:57)
[2016-05-09] MEDS: FUROSEMIDE 40 MG TABLET PO SCH (21:35)
[2016-05-09 22:56] LABS: GLUCOSE,POINT OF CARE 290 MG/DL (70-110)
[2016-05-10] MEDS ORDERED: 0.9% SODIUM CHLORIDE 5 ML NEB SOLUTION NEB ONE ×2 (00:28→02:33)
[2016-05-10] MEDS: ALBUTEROL SULFATE 2.5 MG/0.5 ML NEB SOLUTION NEB PRN (00:29)
[2016-05-10] MEDS: ALBUTEROL SULFATE 2.5 MG/0.5 ML NEB SOLUTION NEB SCH ×3 (02:00→14:00)
[2016-05-10 04:30] VITALS: BP 138/77
[2016-05-10] MEDS: METOCLOPRAMIDE HCL 5 MG TABLET PO SCH ×2 (05:08→11:22)
[2016-05-10] MEDS: INSULIN ASPART 100 UNITS/ML SQ PRN ×2 (05:09→11:18)
[2016-05-10 05:52] LABS: GLUCOSE,POINT OF CARE 250 MG/DL (70-110)
[2016-05-10] MEDS: BUDESONIDE 0.5 MG/2 ML NEB SOLUTION NEB SCH (07:57)
[2016-05-10] MEDS: PANTOPRAZOLE SODIUM 40 MG DR TABLET PO SCH (08:23)
[2016-05-10] MEDS: CALCIUM ACETATE 667 MG CAPSULE PO SCH ×2 (08:23→11:19)
[2016-05-10] MEDS: LABETALOL HCL 200 MG TABLET PO SCH (08:24)
[2016-05-10] MEDS: DOCUSATE SODIUM 100 MG CAPSULE PO PRN (08:24)
[2016-05-10] MEDS: FUROSEMIDE 40 MG TABLET PO SCH (08:24)
[2016-05-10] MEDS: AmLODIPine BESYLATE 5 MG TABLET PO SCH (08:24)
[2016-05-10] MEDS: HydrALAZINE HCL 25 MG TABLET PO SCH (08:24)
[2016-05-10 08:27] VITALS: BP 128/64
[2016-05-10] MEDS: EPOETIN ALFA 10,000 UNITS/ML VIAL SQ SCH (08:27)
[2016-05-10 11:22] LABS: GLUCOSE COMMENT 1 Received Meds; GLUCOSE,POINT OF CARE 354 MG/DL (70-110)
[2016-05-10 11:25] VITALS: BP 135/73
[2016-05-10 12:47] LABS: CALCIUM, TOTAL 8.8 mg/dL (8.8-10.5); CREATININE 2.26 mg/dL (0.60-1.30); MAGNESIUM 2.1 mg/dL (1.80-2.40); PHOSPHORUS 3.9 mg/dL (2.5-4.9); POTASSIUM 4.3 mmol/L (3.5-5.1)
[2016-05-10] MEDS ORDERED: LEVO500 PO ×2 (14:17→14:19)
[2016-05-10 16:04] VITALS: BP 147/77
== END 2016-05-10 16:55 | disposition home or self-care (01) | DRG 720 ==
LOC: EMS 14:00 → 5S 18:26 → 5N 18:26 → 6N 04-20 18:35
PROVIDERS: ADMIT Hospitalist; ATTEND Hospitalist
PROC: 30233N1 Transfusion of Nonautologous Red Blood Cells into Peripheral Vein, Percutaneous Approach (ICD-10-PCS; 2016-04-15)
PROC: 5A09457 Assistance with Respiratory Ventilation, 24-96 Consecutive Hours, Continuous Positive Airway Pressure (ICD-10-PCS; 2016-04-24)
PROC: 0W993ZZ Drainage of Right Pleural Cavity, Percutaneous Approach (ICD-10-PCS; principal; 2016-04-28)
PROC: 0TB03ZX Excision of Right Kidney, Percutaneous Approach, Diagnostic (ICD-10-PCS; 2016-04-28)
DX: A41.9 Sepsis, unspecified organism (principal); J96.01 Acute respiratory failure with hypoxia; G93.41 Metabolic encephalopathy; E43 Unspecified severe protein-calorie malnutrition; J90 Pleural effusion, not elsewhere classified; N17.9 Acute kidney failure, unspecified; J18.9 Pneumonia, unspecified organism; E11.21 Type 2 diabetes mellitus with diabetic nephropathy; D64.9 Anemia, unspecified; N18.9 Chronic kidney disease, unspecified; E11.22 Type 2 diabetes mellitus with diabetic chronic kidney disease; E78.5 Hyperlipidemia, unspecified; E87.5 Hyperkalemia; F17.210 Nicotine dependence, cigarettes, uncomplicated; F29 Unspecified psychosis not due to a substance or known physiological condition; K59.00 Constipation, unspecified; K74.60 Unspecified cirrhosis of liver; N04.9 Nephrotic syndrome with unspecified morphologic changes; I50.9 Heart failure, unspecified; I31.3 Pericardial effusion (noninflammatory); I13.0 Hypertensive heart and chronic kidney disease with heart failure and stage 1 through stage 4 chronic kidney disease, or unspecified chronic kidney disease; Z79.899 Other long term (current) drug therapy; Z87.441 Personal history of nephrotic syndrome; Z86.11 Personal history of tuberculosis; Z68.29 Body mass index [BMI] 29.0-29.9, adult
CPT/HCPCS: 32555; 50200; 71020; 71250; 76770; 76942; 78582; 81050; 82465; 82570; 82575; 82607; 82746; 82784; 82805; 82945; 82948; 82962; 83036; 83540; 83550; 83615; 83735; 83986; 84100; 84132; 84155; 84156; 84157; 84165; 84166; 85651; 86038; 86160; 86162; 86334; 86480; 86635; 86803; 86850; 86900; 86901; 86920; 87015; 87040; 87070; 87081; 87101; 87205; 87340; 87389; 88108; 88300; 88305; 88312; 88313; 88346; 88348; 89050; 89051; 93005; 93306; 93970; 94640; 94660; 96365; 96366; 96375; 99285; A9539; A9540; J0360; J0885; J1644; J1815; J1940; J1956; J2060; J2250; J2270; J2405; J2543; J3010; J3370; J3490; J7040; J7050; J7060; P9016; P9046

== ENCOUNTER 2016-05-13 19:09 | Inpatient (IN) | payer MEDICAID, OTHER ==
[~2016-05-13] VITALS: Ht 177.8 cm; Wt 86.4 kg
[~2016-05-13 19:09] MED LIST changes: +ACET-784 PO; +ALBU8HFA IH; +AMLO-511 PO; +FURO40 PO; -GLYB5 PO; +HYDR25 PO; +INSU100C6 SQ; +LABE200T PO; +LEVO500 PO; -LISI-662 PO; +LORA2TAB2 PO; -METF500T4 PO; +PANT20TA12 PO; +PHOSLOC PO
[2016-05-13] MEDS ORDERED: 0.9% SODIUM CHLORIDE 5 ML NEB SOLUTION NEB ONE ×2 (19:19→21:11)
[2016-05-13] MEDS ORDERED: ALBUTEROL SULFATE 2.5 MG/0.5 ML NEB SOLUTION NEB ONE (19:30)
[2016-05-13] MEDS ORDERED: PANT40TA25 PO (19:40)
[2016-05-13 19:46] LABS: BASOPHILS # (AUTO) 0.02 K/uL (0.00-0.20); BASOPHILS % (AUTO) 0.2 % (0.0-2.0); EOSINOPHILS # (AUTO) 0.98 K/uL (0.00-0.70); EOSINOPHILS % (AUTO) 10.04 % (1.0-6.0); HEMATOCRIT 29.8 % (41-53); HEMOGLOBIN 9.9 g/dL (13.5-17.5); LYMPHOCYTES % (AUTO) 9.8 % (22.0-44.0); MEAN CORPUSCULAR HEMOGLOBIN 25.8 pg (26.0-34.0); MEAN CORPUSCULAR HGB CONC 33.1 G/dL (31.0-37.0); MEAN CORPUSCULAR VOLUME 78 fL (80-100); MONOCYTES # (AUTO) 0.9 K/uL (0.1-1.0); MONOCYTES % (AUTO) 9.2 % (2.0-9.0); NEUTROPHILS # (AUTO) 6.9 K/uL (1.8-7.7); NEUTROPHILS % (AUTO) 70.8 % (40.0-70.0); PLATELET COUNT (AUTO) 264 K/uL (150-450); RED BLOOD CELL COUNT(AUTO) 3.82 MIL/uL (4.50-5.90); WHITE BLOOD COUNT (AUTO) 9.8 K/uL (4.5-11.0)
[2016-05-13 20:00] LABS: INR 1.1 (0.9-1.1); PROTHROMBIN TIME 11.2 SEC (9.4-11.6)
[2016-05-13 20:14] LABS: B-TYPE NATRIURETIC PEPTIDE 893 pg/mL (0-100)
[2016-05-13 20:15] LABS: CHLORIDE 99 mmol/L (98-107)
[2016-05-13 20:19] LABS: ALANINE AMINOTRANSFERASE 21 U/L (12-78); ALBUMIN 3.7 g/dL (3.4-5.0); ANION GAP 3 mmol/L (8-16); ASPARTATE AMINOTRANSFERASE 16 U/L (15-37); BILIRUBIN,TOTAL 0.7 mg/dL (0.1-1.0); CALCIUM, TOTAL 8.8 mg/dL (8.8-10.5); CARBON DIOXIDE 36 mmol/L (22-29); CREATINE KINASE MB 2.3 ng/mL (0-5); CREATINE KINASE, TOTAL 91 U/L (39-308); CREATININE 1.65 mg/dL (0.60-1.30); GLOMERULAR FILTR. RATE CALC 45 mL/min (>60); POTASSIUM 4.7 mmol/L (3.5-5.1); SODIUM SERUM 138 mmol/L (136-145); TOTAL PROTEIN, SERUM 8.2 g/dL (6.4-8.2); UREA NITROGEN, BLOOD 52 mg/dL (7-18)
[2016-05-13] MEDS ORDERED: FUROSEMIDE 40 MG/4 ML VIAL IVP ONE (20:30)
[2016-05-13] MEDS ORDERED: MethylPREDNISolone SOD SUCC 125 MG/2 ML VIAL IVP ONE (20:30)
[2016-05-13] MEDS ORDERED: ALBUTEROL SULFATE 5 MG/ML 20 ML NEB SOLN [BULK] NEB ONE (20:30)
[2016-05-13] MEDS ORDERED: IPRATROPIUM BROMIDE 0.5 MG/2.5 ML NEB SOLUTION NEB ONE (20:30)
[2016-05-13 21:13] LABS: APPEARANCE,URINE CLEAR (CLEAR); GLUCOSE, URINE (UA) >=1000 mg/dL (NEGATIVE); KETONES,URINE NEGATIVE (NEGATIVE); LEUKOCYTE ESTERASE ,URINE NEGATIVE (NEGATIVE); OCCULT BLOOD,URINE MODERATE (NEGATIVE); PROTEIN,URINE SEE CONFIRM (NEGATIVE)
[2016-05-13 21:14] LABS: ADD UA MICROSCOPIC YES
[2016-05-13] MEDS ORDERED: ONDANSETRON HCL 4 MG/2 ML VIAL IVP PRN (21:15)
[2016-05-13] MEDS ORDERED: INSULIN REGULAR, HUMAN 100 UNITS/ML IVP ONE (21:15)
[2016-05-13] MEDS ORDERED: 0.9% SODIUM CHLORIDE 10 ML SYRINGE IVP PRN (21:15)
[2016-05-13] MEDS ORDERED: ACETAMINOPHEN 325 MG TABLET PO PRN (21:15)
[2016-05-13 21:26] LABS: SULFOSALICYLIC ACID,URINE 3+ (Negative)
[2016-05-13 21:27] LABS: SQUAMOUS EPITHELIAL CELL,UR Few /LPF (None Seen)
[2016-05-13 21:29] LABS: WBC,URINE 0-2 /HPF (0-5)
[2016-05-13] MEDS ORDERED: ASPIRIN 325 MG TABLET PO ONE (21:30)
[2016-05-13] MEDS: IPRATROPIUM BROMIDE 0.5 MG/2.5 ML NEB SOLUTION NEB SCH (21:37)
[2016-05-13] MEDS: ALBUTEROL SULFATE 2.5 MG/0.5 ML NEB SOLUTION NEB SCH (21:37)
[2016-05-13] MEDS: OXYGEN THERAPY IH SCH (21:57)
[2016-05-13 22:32] LABS: INFLUENZA TYPE B NEGATIVE FOR TYPE B (NEGATIVE)
[2016-05-13 23:33] VITALS: BP 187/102
[2016-05-14] VITALS (7 sets, daily range): BP systolic 151–187; BP diastolic 85–94
[2016-05-14] MEDS: HydrALAZINE HCL 20 MG/ML VIAL IVP PRN ×3 (00:08→11:59)
[2016-05-14] MEDS ORDERED: DEXTROSE 50%-WATER 25 GM/50 ML SYRINGE IVP PRN (00:30)
[2016-05-14] MEDS: INSULIN ASPART 100 UNITS/ML SQ PRN ×5 (00:44→21:55)
[2016-05-14] MEDS ORDERED: INFLUENZA VIRUS VACCINE QVS 2016-17 (3YR+)/PF 60 MCG/0.5 ML SYRINGE IM ONE (02:30)
[2016-05-14] MEDS ORDERED: -PHARMACY VACCINE NOTE- MISC ONE ×2 (02:30)
[2016-05-14] MEDS: IPRATROPIUM BROMIDE 0.5 MG/2.5 ML NEB SOLUTION NEB SCH ×4 (02:43→19:37)
[2016-05-14] MEDS: ALBUTEROL SULFATE 2.5 MG/0.5 ML NEB SOLUTION NEB SCH ×4 (02:43→19:37)
[2016-05-14] MEDS ORDERED: SODIUM CHLORIDE 0.9% 1,000 ML IV SCH (04:00)
[2016-05-14] MEDS ORDERED: ACETAMINOPHEN 325 MG TABLET PO PRN ×2 (04:15→04:30)
[2016-05-14] MEDS ORDERED: ALBUTEROL SULFATE 2.5 MG/0.5 ML NEB SOLUTION NEB PRN (04:30)
[2016-05-14] MEDS ORDERED: 0.9% SODIUM CHLORIDE 10 ML SYRINGE IVP PRN (04:30)
[2016-05-14] MEDS ORDERED: MAGNESIUM HYDROXIDE SUSPENSION 30 ML UDCUP PO PRN (04:30)
[2016-05-14] MEDS ORDERED: IPRATROPIUM BROMIDE 0.5 MG/2.5 ML NEB SOLUTION NEB PRN (04:30)
[2016-05-14] MEDS ORDERED: ONDANSETRON HCL 4 MG/2 ML VIAL IVP PRN (04:30)
[2016-05-14] MEDS ORDERED: *CLINICAL-LEVOFLOXACIN IVPB DOSING CLINICAL ONE ×2 (04:45)
[2016-05-14] MEDS ORDERED: LEVOFLOXACIN 750 MG/D5% WATER 150 ML IV SCH (06:00)
[2016-05-14] MEDS ORDERED: INSULIN DETEMIR 100 UNITS/ML SQ ONE (06:30)
[2016-05-14] MEDS: PANTOPRAZOLE SODIUM 40 MG/VIAL IVP SCH (09:48)
[2016-05-14] MEDS: MethylPREDNISolone SOD SUCC 125 MG/2 ML VIAL IVP SCH ×2 (09:48→16:35)
[2016-05-14] MEDS: AmLODIPine BESYLATE 5 MG TABLET PO SCH (09:50)
[2016-05-14] MEDS: NYSTATIN 500,000 UNITS/5 ML SUSPENSION UDCUP PO SCH ×2 (09:50→21:51)
[2016-05-14] MEDS: LABETALOL HCL 200 MG TABLET PO SCH ×2 (09:51→21:50)
[2016-05-14] MEDS: DOCUSATE SODIUM 100 MG CAPSULE PO SCH ×2 (09:51→21:50)
[2016-05-14] MEDS: CALCIUM ACETATE 667 MG CAPSULE PO SCH (09:51)
[2016-05-14] MEDS: FLUCONAZOLE 200 MG TABLET PO SCH (09:51)
[2016-05-14] MEDS: OXYGEN THERAPY IH SCH (09:52)
[2016-05-14] MEDS: HydrALAZINE HCL 25 MG TABLET PO SCH ×2 (09:53→16:34)
[2016-05-14] MEDS: FUROSEMIDE 40 MG/4 ML VIAL IVP SCH (13:32)
[2016-05-14 15:56] LABS: ABG A-A DIFF O2 73.9 mmHg (10-20.0); ABG BASE EXCESS 7.7 mmol/L (-2.0-3.0); ABG HCO3 30.9 mmol/L (22.0-26.0); ABG OXYHEMOGLOBIN 93.9 % (94.0-100.0); ABG PCO2 41 mmHg (35-45); ABG PH 7.497 (7.35-7.450); ALLEN TEST, BLOOD GAS Positive; TEMPERATURE, FAHRENHEIT, BG 98.1 FAHREN (96.0-98.6)
[2016-05-14 22:46] LABS: GLUCOSE,POINT OF CARE 251 MG/DL (70-110)
[2016-05-14 22:51] LABS: GLUCOSE COMMENT 1 Received Meds; GLUCOSE,POINT OF CARE 294 MG/DL (70-110)
[2016-05-15] MEDS: LORazepam 2 MG TABLET PO PRN (00:05)
[2016-05-15] MEDS: CefTAZidime PENTAHYDRATE 2 GM in DEXTROSE 5%-WATER 50 ML IV SCH ×3 (00:06→15:51)
[2016-05-15] MEDS: MethylPREDNISolone SOD SUCC 125 MG/2 ML VIAL IVP SCH ×2 (00:06→09:26)
[2016-05-15] MEDS: HydrALAZINE HCL 25 MG TABLET PO SCH ×3 (00:08→15:52)
[2016-05-15] MEDS: IPRATROPIUM BROMIDE 0.5 MG/2.5 ML NEB SOLUTION NEB SCH ×4 (02:14→19:45)
[2016-05-15] MEDS: ALBUTEROL SULFATE 2.5 MG/0.5 ML NEB SOLUTION NEB SCH ×4 (02:14→19:45)
[2016-05-15 05:09] VITALS: BP 160/95
[2016-05-15] MEDS: HydrALAZINE HCL 20 MG/ML VIAL IVP PRN (05:26)
[2016-05-15] MEDS: INSULIN ASPART 100 UNITS/ML SQ PRN ×4 (05:26→21:14)
[2016-05-15] MEDS ORDERED: DEXTROSE 50%-WATER 25 GM/50 ML SYRINGE IVP PRN (06:15)
[2016-05-15] MEDS ORDERED: INSULIN DETEMIR 100 UNITS/ML SQ ONE (06:15)
[2016-05-15 07:05] LABS: EOSINOPHILS % (AUTO) 0 % (1.0-6.0); HEMATOCRIT 25.1 % (41-53); HEMOGLOBIN 8.4 g/dL (13.5-17.5); LYMPHOCYTES # (AUTO) 0.5 K/uL (1.0-4.8); LYMPHOCYTES % (AUTO) 6.4 % (22.0-44.0); MEAN CORPUSCULAR HEMOGLOBIN 25.8 pg (26.0-34.0); MEAN CORPUSCULAR HGB CONC 33.6 G/dL (31.0-37.0); MEAN CORPUSCULAR VOLUME 77 fL (80-100); MONOCYTES # (AUTO) 0.1 K/uL (0.1-1.0); MONOCYTES % (AUTO) 0.9 % (2.0-9.0); PLATELET COUNT (AUTO) 239 K/uL (150-450); RED BLOOD CELL COUNT(AUTO) 3.27 MIL/uL (4.50-5.90); RED CELL DISTRIBUTION WIDTH 19.4 % (11.5-14.5); WHITE BLOOD COUNT (AUTO) 7.5 K/uL (4.5-11.0)
[2016-05-15 07:07] LABS: NEUTROPHILS % (AUTO) 92.7 % (40.0-70.0)
[2016-05-15 07:34] VITALS: BP 151/69
[2016-05-15 07:44] LABS: CALCIUM, TOTAL 8.5 mg/dL (8.8-10.5); CREATININE 2.05 mg/dL (0.60-1.30); POTASSIUM 4.4 mmol/L (3.5-5.1)
[2016-05-15] MEDS ORDERED: SODIUM CHLORIDE 0.9% 100 ML ONE (09:16)
[2016-05-15] MEDS: FUROSEMIDE 40 MG/4 ML VIAL IVP SCH (09:27)
[2016-05-15] MEDS: PANTOPRAZOLE SODIUM 40 MG/VIAL IVP SCH (09:29)
[2016-05-15] MEDS: NYSTATIN 500,000 UNITS/5 ML SUSPENSION UDCUP PO SCH ×2 (09:29→20:12)
[2016-05-15] MEDS: LABETALOL HCL 200 MG TABLET PO SCH ×2 (09:30→20:12)
[2016-05-15] MEDS: DOCUSATE SODIUM 100 MG CAPSULE PO SCH ×2 (09:30→20:12)
[2016-05-15] MEDS: CALCIUM ACETATE 667 MG CAPSULE PO SCH (09:30)
[2016-05-15] MEDS: AmLODIPine BESYLATE 5 MG TABLET PO SCH (09:30)
[2016-05-15] MEDS: FLUCONAZOLE 200 MG TABLET PO SCH (09:30)
[2016-05-15] MEDS: INSULIN DETEMIR 100 UNITS/ML SQ SCH (09:44)
[2016-05-15] MEDS ORDERED: INSULIN ASPART 100 UNITS/ML SQ ONE (12:00)
[2016-05-15 14:32] VITALS: BP 150/84
[2016-05-15] MEDS: MethylPREDNISolone SOD SUCC 40 MG/ML VIAL IVP SCH (15:51)
[2016-05-15 19:56] VITALS: BP 146/82
[2016-05-15 23:59] VITALS: BP 152/84
[2016-05-16] MEDS: CefTAZidime PENTAHYDRATE 2 GM in DEXTROSE 5%-WATER 50 ML IV SCH ×3 (00:38→16:00)
[2016-05-16] MEDS: MethylPREDNISolone SOD SUCC 40 MG/ML VIAL IVP SCH ×2 (00:38→08:20)
[2016-05-16] MEDS: HydrALAZINE HCL 25 MG TABLET PO SCH ×3 (00:38→17:00)
[2016-05-16] MEDS: IPRATROPIUM BROMIDE 0.5 MG/2.5 ML NEB SOLUTION NEB SCH ×3 (01:34→16:44)
[2016-05-16] MEDS: ALBUTEROL SULFATE 2.5 MG/0.5 ML NEB SOLUTION NEB SCH ×3 (01:34→16:44)
[2016-05-16] MEDS: LORazepam 2 MG TABLET PO PRN (01:37)
[2016-05-16 04:07] LABS: GLUCOSE COMMENT 1 Received Meds; GLUCOSE,POINT OF CARE 433 MG/DL (70-110)
[2016-05-16 04:07] LABS: GLUCOSE COMMENT 1 Received Meds; GLUCOSE,POINT OF CARE 461 MG/DL (70-110)
[2016-05-16 04:26] VITALS: BP 163/89
[2016-05-16] MEDS: INSULIN ASPART 100 UNITS/ML SQ PRN ×2 (06:22→15:39)
[2016-05-16] MEDS ORDERED: INSULIN ASPART 100 UNITS/ML SQ ONE (07:00)
[2016-05-16 07:19] VITALS: BP 155/85
[2016-05-16] MEDS: CALCIUM ACETATE 667 MG CAPSULE PO SCH (08:20)
[2016-05-16 08:52] LABS: GLUCOSE COMMENT 1 Received Meds; GLUCOSE,POINT OF CARE 196 MG/DL (70-110)
[2016-05-16] MEDS ORDERED: FLUCONAZOLE 200 MG TABLET PO SCH (09:00)
[2016-05-16 09:53] LABS: EOSINOPHILS % (AUTO) 0 % (1.0-6.0); HEMATOCRIT 26.4 % (41-53); HEMOGLOBIN 8.6 g/dL (13.5-17.5); LYMPHOCYTES # (AUTO) 0.6 K/uL (1.0-4.8); LYMPHOCYTES % (AUTO) 5.9 % (22.0-44.0); MEAN CORPUSCULAR HEMOGLOBIN 25.2 pg (26.0-34.0); MEAN CORPUSCULAR HGB CONC 32.6 G/dL (31.0-37.0); MEAN CORPUSCULAR VOLUME 77 fL (80-100); MONOCYTES # (AUTO) 0.6 K/uL (0.1-1.0); MONOCYTES % (AUTO) 6.1 % (2.0-9.0); NEUTROPHILS # (AUTO) 8.5 K/uL (1.8-7.7); PLATELET COUNT (AUTO) 247 K/uL (150-450); RED BLOOD CELL COUNT(AUTO) 3.41 MIL/uL (4.50-5.90); RED CELL DISTRIBUTION WIDTH 19.8 % (11.5-14.5); WHITE BLOOD COUNT (AUTO) 9.7 K/uL (4.5-11.0)
[2016-05-16 10:03] LABS: CALCIUM, TOTAL 8.3 mg/dL (8.8-10.5); CREATININE 2.11 mg/dL (0.60-1.30); POTASSIUM 4.8 mmol/L (3.5-5.1)
[2016-05-16] MEDS: PANTOPRAZOLE SODIUM 40 MG/VIAL IVP SCH (10:12)
[2016-05-16] MEDS: FUROSEMIDE 40 MG/4 ML VIAL IVP SCH (10:12)
[2016-05-16] MEDS: DOCUSATE SODIUM 100 MG CAPSULE PO SCH (10:12)
[2016-05-16] MEDS: AmLODIPine BESYLATE 5 MG TABLET PO SCH (10:13)
[2016-05-16] MEDS: NYSTATIN 500,000 UNITS/5 ML SUSPENSION UDCUP PO SCH (10:13)
[2016-05-16] MEDS: LABETALOL HCL 200 MG TABLET PO SCH (10:13)
[2016-05-16] MEDS: INSULIN DETEMIR 100 UNITS/ML SQ SCH (10:26)
[2016-05-16 10:52] LABS: RBC MORPHOLOGY COMMENT ABNORMAL RBC MORPH
[2016-05-16 11:26] VITALS: BP 152/78
[2016-05-16 15:06] VITALS: BP 175/87
[2016-05-16] MEDS ORDERED: PredniSONE 20 MG TABLET PO SCH (15:15)
[2016-05-17 21:06] LABS: COCCIDIOIDES AB BY CF(TITER) 1:16 (Neg:<1:2)
== END 2016-05-16 17:00 | disposition home or self-care (01) | DRG 139 ==
LOC: EMS 19:10 → 5S 22:00
PROVIDERS: ADMIT Internal Medicine; ATTEND Internal Medicine
DX: J18.9 Pneumonia, unspecified organism (principal); N17.9 Acute kidney failure, unspecified; B37.0 Candidal stomatitis; J44.0 Chronic obstructive pulmonary disease with (acute) lower respiratory infection; I11.0 Hypertensive heart disease with heart failure; B38.9 Coccidioidomycosis, unspecified; I50.30 Unspecified diastolic (congestive) heart failure; E11.21 Type 2 diabetes mellitus with diabetic nephropathy; E11.65 Type 2 diabetes mellitus with hyperglycemia; F17.210 Nicotine dependence, cigarettes, uncomplicated; D63.8 Anemia in other chronic diseases classified elsewhere; Z99.81 Dependence on supplemental oxygen; E86.0 Dehydration; Z86.11 Personal history of tuberculosis; Z91.19 Patient's noncompliance with other medical treatment and regimen; Z79.4 Long term (current) use of insulin; Z79.899 Other long term (current) drug therapy; Z79.51 Long term (current) use of inhaled steroids
CPT/HCPCS: 71250; 82805; 82962; 83605; 84145; 86635; 87040; 87081; 87804; 93005; 94640; 94644; 94660; 96374; 96375; 99291; C9113; G0480; J0360; J0713; J1815; J1940; J1956; J2920; J2930; J7030; J7050; J7060